=== PATIENT | female | born 1970 | race Hispanic/Latino ===

== ENCOUNTER 2020-11-10 16:04 | Inpatient (IN) | payer OTHER, SELFPAY ==
--- OUTSIDE RECORDS SUMMARY | 2020-11-10 16:07 | XMS REPORT | Continuity of Care Document ---
:1970 Author Organization [facility] t Address [address] [place] [address] Care Team Providers Name Role Phone Yifan Morris DO Primary Care Physician BETO Attending Clinician Unavailable Roney Rodrigues Attending Clinician ELEANOR Attending Clinician Unavailable Mart Webster Attending Clinician Diego Sutton Attending Clinician Natasha Attending Clinician Jory Attending Clinician Diego Sutton Admitting Clinician Payers Payer Name Policy Type Policy Effective Date Expiration Date [facility] Number 90 [id number] 2019 [employer] DEGREE/ENTRUSTE 00:00:00 [facility] NTRUST / 90 DEGREE BENEFITS COVERAGE [id number] 020-PresentPPO Problems Condition Condition Condition Status Onset Resolution Last Treating Co mments Source Name Details Category Date Date Treatment Clinician Date Mixed Mixed Disease Active 2019-03 Methodi incontinen incontinen 04-02 st ce urge ce urge 00:00: Hospita and stress and stress 00 l HOME SLEEP Diagnosis Active 2017-05-24 Memoria STUDY 2- 13:25:00 l G0399 HOME 00:00: [place] SLEEP 00 STUDY G0399 Active 05/20/2017 [facility] M50.90 - Diagnosis Active 2016-032017-02-01 M emoria CERVICAL -08 19:00:00 l DISC M50.90 - 00:01: Fadi n DISORDER, CERVICAL 00 UNSP, DISC DISORDER, UNSP, Active 01/30/2017 KIRK Martinez Interverte Problem Active 2018-11-22 M emoria bral disc 00:50:31 l disorder Adam (disorder) Interverte bral disc disorder (disorder) Active Problem 11/22/2018 [facility] Migraine Problem Active 2018-11-22 Mem oria (disorder) 00:50:31 l Migraine Fadi n (disorder) Active Problem 11/22/2018 [facility] Obstructiv Problem Active 2018-11-22 M emoria e sleep 00:50:31 l apnea Adam syndrome Obstructiv (disorder) e sleep apnea syndrome (disorder) Active Problem 11/22/2018 [facility] Cervical Problem Active 2018-11-22 Mem oria disc 00:50:31 l disorder Cervical Herm ashtyn (disorder) disc disorder (disorder) Active Problem 11/22/2018 [facility] Fibromyalg Problem Active 2018-11-22 M emoria ia 00:50:31 l (disorder) Fadi n Fibromyalg ia (disorder) Active Problem 11/22/2018 [facility] KIRK Martinez History of Past Illness Condition Condition Condition Status Onset Resolution Last Treating Co mments Source Name Details Category Date Date Treatment Clinician Date Obstructiv Problem 2017-08-30 2017-08-30 Memoria e sleep 05-31 12:33:46 12:33:46 l apnea 04:50: Adam (adult) Obstructiv 38 (pediatric e sleep ) apnea (adult) (pediatric ) 05/31/2017 08/30/2017 [facility] Allergies, Adverse Reactions, Alerts Allergy Allergy Status Severity Reaction(s) Onset Inactive Treating Comm ents Source Name Type Date Date Clinician No Known DA Active [facility] 10[facility]30 [facility] [place] No Known DA Active [facility]- [facility] [place] Social History Social Habit Start Date Stop Date Quantity Comments Source Tobacco use and 2020-02-01 2020-02-01 Never used [facility] exposure 00:00:00 00:00:00 Social History 2017-06-03 2017-06-03 [facility] 19:18:42 19:18:42 Sex Ass[birth year] At [birth year] [facility] 00:00:00 00:00:00 Smoking Status Start Date Stop Date Source Social History [facility] Medications Ordered Filled Start Stop Current Ordering Indication Dosage Frequency Signature Comments Components Source Medication Medication Date Date Medication? Clinician (SIG) Name Name Botulinum Yes 200 unit, Mem oria Toxin Type 5-21 Route: IM, l A 21:01: ONCE, [place] 00 Dosing Weight 70.455, kg, Start date: 08/12/18 16:01:00 CDT, Stop date: 08/12/18 16:01:00 CDT Acetaminoph 2017-03 No 1 tab, PO, Memoria en 325 MG / 2-17 BID, PRN l Hydrocodone 20:04: Pain, [facility] Bitartrate 00 pain. CTRL 10 MG Oral [id number] Tablet 78, X 30 [[place] day, # 60 10/325] tab, 0 Refill(s), given to patient gabapentin 2017-03 Yes 600 mg = 2 M emoria 300 MG Oral 2-17 tab, PO, l Tablet 20:02: Bedtime, # Paloma nn [Gralise] 08 60 tab, 2 Refill(s), Pharmacy: [facility] #[id number] gabapentin No 600 mg = 2 M emoria 300 MG Oral 8-29 tab, PO, l Tablet 17:36: Bedtime, X Paloma nn [Gralise] 37 30 day, # 60 tab, 2 Refill(s), Pharmacy: [facility] #[id number] tizanidine Yes See Memoria 2 mg oral 7-09 Instructio l tablet 13:16: ns, PRN as Paloma nn 52 needed for muscle spasm, 1 to 2 tab q12 hours/prn, # 45 tab, 0 Refill(s), Pharmacy: [facility] #[id number] 24 HR Yes See Memoria Cyclobenzap 5-31 Instructio l rine 17:24: ns, 1 cap Adam hydrochlori 00 PO de 15 MG q12h/prn Extended for muscle Release spasms, # Capsule 45 tab, 1 [Amrix] Refill(s), [facility]acy: [facility][id number] tizanidine 2017-0 Yes See Memoria 2 mg oral 5-22 Instructio l tablet 22:37: ns, PRN as Paloma nn 51 needed for muscle spasm, 1 to 2 tab q12 hours/prn, # 45 tab, 2 Refill(s), Pharmacy: [facility] #[id number] gabapentin 2017- Yes 600 mg = 2 M emoria 300 MG Oral 5-22 tab, PO, l Tablet 22:35: Bedtime, # Paloma nn [Gralise] 57 60 tab, 2 Refill(s), Pharmacy: [facility] #[id number] tizanidine 2018-0 Yes 2 mg = 1 Mem oria 2 mg oral 5-07 tab, PO, l tablet 15:21: TID, PRN Adam 15 as needed for muscle spasm, # 90 tab, 0 Refill(s), Pharmacy: [facility] #[id number] onabotulinu Yes See Memori a mtoxinA 200 5-02 Instructio l UNT/ML 19:23: ns, OFFICE Paloma nn Injectable 00 USE ONLY. Solution MD to [Botox] inject 155 units IM to head & neck region q90 days, # 1 vial, 3 Refill(s), Pharmacy: [facility], Dx: G43.709 tizanidine 2017-0 No 2 mg = 1 Mem oria 2 mg oral 4-09 tab, PO, l tablet 18:15: TID, PRN Adam 17 as needed for muscle spasm, X 30 day, # 90 tab, 0 Refill(s), Pharmacy: [facility] #[id number] tizanidine 2017-0 No 2 mg = 1 Mem oria 2 mg oral 3-12 tab, PO, l tablet 21:25: TID, PRN Adam 00 as needed for muscle spasm, X 30 day, # 90 tab, 0 Refill(s), Pharmacy: [facility] #[id number] Fish Oil 2018-0 Yes PO, 0 Memoria 3-12 Refill(s) l 19:43: [place] 00 Trazodone 2018-0 Yes PO, 0 Memoria 3-12 Refill(s) l 19:43: [place] 00 Milk 2018-0 Yes 0 Memoria Thistle 3-12 Refill(s) l 19:43: [place] 00 Vitamin D3 2017-0 Yes 50,000 Memor ia 50,000 intl 2-13 IntlUnit = l units oral 23:00: 1 cap, PO, H ermann capsule 01 qWeek, # 12 cap, 3 Refill(s), Pharmacy: [facility] #[id number] gabapentin 2017- Yes 300 mg = 1 M emoria 300 MG Oral 2-05 tab, PO, l Tablet 19:52: Bedtime, # Paloma nn [Gralise] 00 60 tab, 1 Refill(s), Pharmacy: [facility] #[id number] Vitamin D3 2016- Yes 50,000 Memor ia 50,000 intl 1-08 IntlUnit = l units oral 04:05: 1 cap, PO, H ermann capsule 00 qWeek, # 12 cap, 1 Refill(s), other No known No Methodi medications [facility]osp[facility] l Vital Signs Vital Name Observation Time Observation Value Comments Source Systolic blood 2020-02-01 16:48:00 106 mm[Hg] [facility] pressure Diastolic blood 2020-02-01 16:48:00 75 mm[Hg] [facility] pressure Heart rate 2020-02-01 16:48:00 76 /min [facility] Body height 2020-02-01 16:48:00 157.5 cm [facility] Body weight 2020-02-01 16:48:00 72.576 kg [facility] BMI 2020-02-01 16:48:00 29.26 kg/m2 [facility] BMI Calculated 2018-10-13 19:20:00 Jacindaori al [place] Height 2018-10-13 19:20:00 157.48 cm [facility] [place] Weight 2018-10-13 19:20:00 [facility] [place] Systolic (mm Hg) 2018-10-13 19:20:00 Dave butt [place] Diastolic (mm Hg) 2018-10-13 19:20:00 Mem maulik [place] Heart Rate 2018-10-13 19:20:00 [facility] [place] Height 2018-05-19 20:06:00 157.48 cm [facility] Adam Weight 2018-05-19 20:06:00 [facility] [place] BMI Calculated 2018-05-19 20:06:00 Memori al [place] Systolic (mm Hg) 2018-05-19 20:06:00 Dave rial [place] Diastolic (mm Hg) 2018-05-19 20:06:00 Mem orial [place] Heart Rate 2018-05-19 20:06:00 [facility] [place] BMI Calculated 2018-04-16 20:49:00 Memori al [place] Weight 2018-04-16 20:49:00 [facility] [place] Height 2018-04-16 20:49:00 154.94 cm [facility] [place] Systolic (mm Hg) 2018-04-16 20:49:00 Dave rial [place] Diastolic (mm Hg) 2018-04-16 20:49:00 Mem orial [place] Heart Rate 2018-04-16 20:49:00 [facility] [place] BMI Calculated 2018-02-19 17:01:00 Memori al [place] Height 2018-02-19 17:01:00 154.94 cm [facility] [place] Weight 2018-02-19 17:01:00 [facility] [place] Systolic (mm Hg) 2018-02-19 17:01:00 Dave rial [place] Diastolic (mm Hg) 2018-02-19 17:01:00 Mem orial [place] Heart Rate 2018-02-19 17:01:00 [facility] [place] BMI Calculated 2018-01-30 18:16:00 Memori al [place] Weight 2018-01-30 18:16:00 [facility] [place] Systolic (mm Hg) 2018-01-30 18:16:00 Dave rial [place] Diastolic (mm Hg) 2018-01-30 18:16:00 Mem orial [place] Heart Rate 2018-01-30 18:16:00 [facility] [place] Height 2018-01-30 18:16:00 154.94 cm [facility] [place] BMI Calculated 2018-01-29 18:20:00 Memori al [place] Weight 2018-01-29 18:20:00 [facility] [place] Height 2018-01-29 18:20:00 154.94 cm [facility] [place] Systolic (mm Hg) 2018-01-29 18:20:00 Dave rial [place] Diastolic (mm Hg) 2018-01-29 18:20:00 Mem orial [place] Heart Rate 2018-01-29 18:20:00 [facility] [place] Systolic (mm Hg) 2017-10-24 16:02:00 Dave rial [place] Diastolic (mm Hg) 2017-10-24 16:02:00 Mem orial [place] Heart Rate 2017-10-24 16:02:00 [facility] [place] BMI Calculated 2017-10-24 16:02:00 Memori al [place] Weight 2017-10-24 16:02:00 [facility] [place] Height 2017-10-24 16:02:00 154.94 cm [facility] [place] Heart Rate 2017-10-09 15:58:00 [facility] [place] Systolic (mm Hg) 2017-10-09 15:58:00 Dave rial [place] Diastolic (mm Hg) 2017-10-09 15:58:00 Mem orial [place] BMI Calculated 2017-10-09 15:58:00 Memori al [place] Weight 2017-10-09 15:58:00 [facility] [place] Height 2017-10-09 15:58:00 157.48 cm [facility] [place] BMI Calculated 2017-08-22 16:50:00 Memori al [place] Weight 2017-08-22 16:50:00 [facility] [place] Height 2017-08-22 16:50:00 154.94 cm [facility] [place] Systolic (mm Hg) 2017-08-22 16:50:00 Dave rial [place] Diastolic (mm Hg) 2017-08-22 16:50:00 Mem orial [place] Heart Rate 2017-08-22 16:50:00 [facility] [place] Height 2017-06-03 19:18:00 157.48 cm [facility] [place] BMI Calculated 2017-06-03 19:18:00 Memori al [place] Weight 2017-06-03 19:18:00 [facility] [place] Heart Rate 2017-06-03 19:18:00 [facility] [place] Systolic (mm Hg) 2017-06-03 19:18:00 Dave rial [place] Diastolic (mm Hg) 2017-06-03 19:18:00 Mem orial [place] Weight 2017-06-03 17:27:00 [facility] [place] BMI Calculated 2017-06-03 17:27:00 Memori al [place] Height 2017-06-03 17:27:00 157.48 cm [facility] [place] Systolic (mm Hg) 2017-06-03 17:27:00 Dave rial [place] Diastolic (mm Hg) 2017-06-03 17:27:00 Mem orial [place] Heart Rate 2017-06-03 17:27:00 [facility] [place] BMI Calculated 2017-04-11 23:47:00 Jacindaori al [place] Weight 2017-04-11 23:47:00 [facility] Adam Height 2017-04-11 23:47:00 154.94 cm [facility] [place] Heart Rate 2017-04-11 23:47:00 [facility] [place] Systolic (mm Hg) 2017-04-11 23:47:00 Dave rial [place] Diastolic (mm Hg) 2017-04-11 23:47:00 [facility] orial [place] Procedures Procedure Date / Time Performing Clinician Source Performed URINE CULTURE 2020-02-01 18:04:00 Vivienne Guillermo ospital [id number] 2020-02-01 17:33:00 Vivienne Guillermo [facility]spital POC URINALYSIS DIPSTICK 2020-02-01 17:26:00 Vivienne Guillermo [facility] Injection(s), diagnostic or 2018-10-14 15:09:00 [facility] [place] therapeutic agent, paravertebral facet (zygapophyseal) joint (or nerves innervating that joint) with image guidance (fluoroscopy or CT), lumbar or sacral; second level (List separately in addition to code for primary procedure) Injection(s), diagnostic or 2018-10-14 15:09:00 [facility] [place] therapeutic agent, paravertebral facet (zygapophyseal) joint (or nerves innervating that joint) with image guidance (fluoroscopy or CT), lumbar or sacral; third and any additional level(s) (List separately in addition to code f Injection(s), diagnostic or 2018-10-14 15:09:00 [facility] [place] therapeutic agent, paravertebral facet (zygapophyseal) joint (or nerves innervating that joint) with image guidance (fluoroscopy or CT), lumbar or sacral; single level Injection(s), diagnostic or 2018-05-01 20:34:00 [facility] [place] therapeutic agent, paravertebral facet (zygapophyseal) joint (or nerves innervating that joint) with image guidance (fluoroscopy or CT), cervical or thoracic; third and any additional level(s) (List separately in addition to co Injection(s), diagnostic or 2018-05-01 20:34:00 [facility] [place] therapeutic agent, paravertebral facet (zygapophyseal) joint (or nerves innervating that joint) with image guidance (fluoroscopy or CT), cervical or thoracic; second level (List separately in addition to code for primary proced Injection(s), diagnostic or 2018-05-01 20:34:00 Russel Medina therapeutic agent, paravertebral facet (zygapophyseal) joint (or nerves innervating that joint) with image guidance (fluoroscopy or CT), cervical or thoracic; single level Injection(s); single or 2018-03-10 20:23:00 Dave rial [place] multiple trigger point(s), 3 or more muscles Injection, anesthetic 2018-03-10 20:23:00 Surjit Kunz agent; greater occipital nerve Injection, anesthetic 2018-03-10 20:23:00 Surjit Kunz agent; other peripheral nerve or branch Chemodenervation of 2018-01-29 17:45:00 Russel Medina muscle(s); muscle(s) innervated by facial, trigeminal, cervical spinal and accessory nerves, bilateral (eg, for chronic migraine) Greater auricular nerve 2017-06-13 05:00:00 Dave rial [place] block Greater occipital nerve 2017-06-13 05:00:00 Dave rial [place] block TPI - Trigger point 2017-06-13 05:00:00 Russel Medina injection section Russel jessica Salpingectomy<sup>1</sup> Surjit Kunz Plan of Care Planned Activity Planned Date Details Comments Source Future Scheduled Test COVID-19 VACCINE (1) [facility] [code = COVID-19 VACCINE (1)] Future Scheduled Test Hepatitis C screening [facility] (procedure) [code = 785905974] Future Scheduled Test Screening for malignant [facility] neoplasm of cervix (procedure) [code = 268969851] Future Scheduled Test BREAST CANCER SCREENING [facility] [code = BREAST CANCER SCREENING] Future Scheduled Test COLONOSCOPY SCREENING [facility] [code = COLONOSCOPY SCREENING] Future Scheduled Test SHINGLES VACCINES (#1) [facility] [code = SHINGLES VACCINES (#1)] Future Scheduled Test INFLUENZA VACCINE [code [facility] = INFLUENZA VACCINE] Encounters Start End Encounter Admission Attending Care Care Encounter Source Date/Time Date/Time Type Type Clinicians Facility Department ID 2020-02-29 2020-02-29 Travel 1.2.840.1 .[id number] Methodi 00:00:00 00:00:[address] 3.430.2.7 0.2.7.3.698 Ho spita .3.329465 084.8 l .8 2020-02-29 2020-02-29 Outpatient BETO, [facility] [id number] [place] 00:00:00 00:00:00 MARY 92[address] [facility] 2020-02-01 2020-02-01 Office [place], 1.2.840.1 [id number] Methodi 10:25:33 10:40:33 Visit Vivienne Sim 56618.1.[address] 3.430.2.7 Hospit a .3.831472 l .8 2020-02-01 2020-02-01 Outpatient [facility] [id number] [place] 00:00:00 00:00:[address] 2020-02-01 2020-02-01 Travel 1.2.840.1 1.2.397.346 [id number] Methodi 00:00:00 00:00:[address] 3.430.2.7 0.2.7.3.698 Ho spita .3.626431 084.8 l .8 2020-01-04 2020-01-04 Travel 1.2.840.1 1.2.113.714 [id number] Methodi 00:00:00 00:00:[address] 3.430.2.7 0.2.7.3.698 Ho spita .3.819094 084.8 l .8 2019-10-05 2019-10-05 Outpatient ELEANOR [facility] [id number] [place] 00:00:00 00:00:00 NIYAH [address] 2018-11-18 2018-11-20 Phone nullFlavo [facility]NA Sp[facility] [id number] Memoria 15:37:48 04:59:59 [facility] 21 l [place] 2018-11-18 2018-11-19 Outpatient MHMISCHER MHMISCHER [id number] 10:37:48 23:59:59 21 2018-11-18 2018-11-18 Ambulatory nullFlavo [facility] [id number] Memoria 19:20:00 19:20:00 Pre-Reg r Clinic [facility] 34 [facility] 2018-11-18 2018-11-18 Outpatient MHIE MHIE [id number] Memoria 14:20:00 14:20:00 34 [facility] 2018-11-18 2018-11-18 Outpatient SHANTELLE WebsterMISCHER MISCHER [id number] 14:20:00 14:20:00 [facility]iy[facility] 2018-11-12 2018-11-14 Phone nullFlavo [facility]NA Sp[facility] [id number] Memoria 15:41:33 04:59:59 Message r Clinic [facility] 20 [facility] 2018-11-12 2018-11-13 Outpatient MHMISCHER MISCHER [id number] 10:41:33 23:59:59 20 2018-10-28 2018-10-29 Outpatient nullFlavo [facility] [id number] Memoria 16:20:00 04:59:59 r Clinic [facility] 33 [facility] 2018-10-28 2018-10-28 Outpatient Eleanor MHMISCHER MISCHER [id number] 11:20:00 23:59:59 Niyah 33 [place] 2018-10-28 2018-10-28 Outpatient MHIE MHIE [id number] Memoria 11:20:00 11:20:00 33 [facility] 2018-10-14 2018-10-15 Outpatient nullFlavo [facility] Sp[facility] [id number] Memoria 13:00:00 04:59:59 r Clinic [facility] 32 [facility] 2018-10-14 2018-10-14 Outpatient Eleanor MHMISCHER MHMISCHER [id number] 08:00:00 23:59:59 Niyah 32 [place] 2018-10-14 2018-10-14 Outpatient MHIE MHIE [id number] Memoria 08:00:00 08:00:00 32 [facility] 2018-10-13 2018-10-14 Outpatient nullFlavo MNA Spine [id number] Memoria 18:20:00 04:59:59 r Clinic [facility] 31 [facility] 2018-10-13 2018-10-13 Outpatient Eleanor, MHMISCHER MHMISCHER 61 [id number] 13:20:00 23:59:59 Niyah Cevallos 2018-10-13 2018-10-13 Outpatient MHIE MHIE [id number] Memoria 13:20:00 13:20:00 31 [facility] 2018-08-21 2018-08-23 Phone nullFlavo MNA [id number] Memoria 15:54:38 04:59:59 Message r Neurosurger 19 l y [facility] 2018-08-21 2018-08-22 Outpatient MHMISCHER MHMISCHER [id number] 10:54:38 23:59:59 19 2018-08-12 2018-08-13 Outpatient nullFlavo [facility] Spine [id number] Memoria 18:20:00 04:59:59 r Clinic [facility] 30 [facility] 2018-08-12 2018-08-12 Outpatient Eleanor, MHMISCHER MHMISCHER [id number] 13:20:00 23:59:59 Niyah Cevallos 2018-08-12 2018-08-12 Outpatient MHIE MHIE [id number] Memoria 13:20:00 13:20:00 30 [facility] 2018-07-22 2018-07-24 Phone nullFlavo MNA Spine [id number] Memoria 17:22:48 04:59:59 Message r Clinic [facility] 18 [facility] 2018-07-22 2018-07-23 Outpatient MHMISCHER MHMISCHER [id number] 12:22:48 23:59:59 18 2018-07-16 2018-07-18 Phone nullFlavo MNA [id number] Memoria 13:19:00 04:59:59 Message r Neurosurger 17 l y [facility] 2018-07-16 2018-07-17 Outpatient MHMISCHER MHMISCHER [id number] 08:19:00 23:59:59 17 2018-07-16 2018-07-17 Outpatient MHMISCHER MHMISCHER [id number] 08:19:00 23:59:59 17 2018-07-14 2018-07-14 Ambulatory nullFlavo [facility]NA Spine [id number] Memoria 16:40:00 16:40:00 Pre-Reg r Clinic [facility] 28 [facility] 2018-07-14 2018-07-14 Outpatient MHIE MHIE [id number] Memoria 11:40:00 11:40:00 28 [facility] 2018-07-14 2018-07-14 Outpatient Eleanor MHMISCHER MHMISCHER [id number] 11:40:00 11:40:00 Niyah 28 [place] 2018-07-09 2018-07-09 Ambulatory nullFlavo [facility]NA Spine [id number] Memoria 16:00:00 16:00:00 Pre-Reg r Clinic TM 29 [facility] 2018-07-09 2018-07-09 Outpatient MHIE MHIE [id number] Memoria 11:00:00 11:00:00 29 [facility] 2018-07-09 2018-07-09 Outpatient Eleanor MISCHER MHMISCHER [id number] 11:00:00 11:00:00 Niyah 29 [place] 2018-06-30 2018-06-30 Ambulatory nullFlavo [facility]NA Spine [id number] Memoria 16:20:00 16:20:00 Pre-Reg r Clinic TM 26 [facility] 2018-06-30 2018-06-30 Outpatient MHIE MHIE [id number] Memoria 11:20:00 11:20:00 26 [facility] 2018-06-30 2018-06-30 Outpatient Eleanor MISCHER MHMISCHER [id number] 11:20:00 11:20:00 Niyah 26 Sarin[place]elhia 2018-06-26 2018-06-27 Outpatient nullFlavo [facility]NA Spine [id number] Memoria 16:20:00 04:59:59 r Clinic TM 27 Adam 2018-06-26 2018-06-26 Outpatient SHANTELLE WebsterMISCHER MHMISCHER [id number] 11:20:00 23:59:59 Niyah 27 Sarinigelhai 2018-06-26 2018-06-26 Outpatient MHIE MHIE [id number] Memoria 11:20:00 11:20:00 27 venice Medina 2018-06-24 2018-06-26 Phone nullFlavo MNA [id number] Memoria 20:21:00 04:59:59 Message r Neurosurger 16 l y [facility] 2018-06-24 2018-06-25 Outpatient MHMISCHER MHMISCHER [id number] 15:21:00 23:59:59 16 2018-06-12 2018-06-12 Ambulatory nullFlavo [facility] Sp[facility] [id number] Memoria 16:20:00 16:20:00 Pre-Reg r Clinic [facility] 25 [facility] 2018-06-12 2018-06-12 Outpatient MHIE MHIE [id number] Memoria 11:20:00 11:20:00 25 [facility] 2018-06-12 2018-06-12 Outpatient Eleanor, MHMISCHER MHMISCHER [id number] 11:20:00 11:20:00 Niyah 25 [place] 2018-05-19 2018-05-20 Outpatient nullFlavo [facility] Sp[facility] [id number] Memoria 20:00:00 05:59:59 r Clinic [facility] 24 [facility] 2018-05-19 2018-05-19 Outpatient Eleanor MHMISCHER MHMISCHER [id number] 14:00:00 23:59:59 Niyah [facility] 2018-05-19 2018-05-19 Outpatient MHIE MHIE [id number] Memoria 14:00:00 14:00:00 24 [facility] 2018-05-12 2018-05-12 Ambulatory nullFlavo MNA Spine [id number] Memoria 17:00:00 17:00:00 Pre-Reg r Clinic [facility] 23 [facility] 2018-05-12 2018-05-12 Outpatient MHIE MHIE [id number] Memoria 11:00:00 11:00:00 23 [facility] 2018-05-12 2018-05-12 Outpatient Eleanor, MHMISCHER MHMISCHER [id number] 11:00:00 11:00:00 Niyah 23 [place] 2018-05-01 2018-05-02 Outpatient nullFlavo [facility]NA Spine [id number] Memoria 17:00:00 05:59:59 r Clinic TM 22 [facility] 2018-05-01 2018-05-01 Outpatient Eleanor, MHMISCHER MHMISCHER [id number] 11:00:00 23:59:59 Niyah Cevallos 2018-05-01 2018-05-01 Outpatient Eleanor, MHMISCHER MHMISCHER [id number] 11:00:00 23:59:59 Niyah Cevallos 2018-05-01 2018-05-01 Outpatient MHIE MHIE [id number] Memoria 11:00:00 11:00:00 22 venice [place] 2018-04-23 2018-04-23 Ambulatory nullFlavo MNA [id number] Memoria 17:45:00 17:45:00 Pre-Reg r Neuroscienc 19 l e [facility] 2018-04-23 2018-04-23 Outpatient MHIE MHIE [id number] Memoria 11:45:00 11:45:00 19 venice [place] 2018-04-23 2018-04-23 Outpatient Sutton, MHMISCHER MHMISCHER [id number] 11:45:00 11:45:00 Tyshawn 19 [facility] 2018-04-23 2018-04-23 Outpatient Sutton, MHMISCHER MHMISCHER [id number] 11:45:00 11:45:00 Tyshawn Kristin Diego 2018-04-16 2018-04-17 Outpatient nullFlavo [facility] [id number] Memoria 20:00:00 05:59:59 r Clinic [facility] 21 [facility] 2018-04-16 2018-04-16 Outpatient Eleanor, MHMISCHER MHMISCHER [id number] 14:00:00 23:59:59 Niyah Cevallos 2018-04-16 2018-04-16 Outpatient Eleanor, MHMISCHER MHMISCHER [id number] 14:00:00 23:59:59 Niyah 21 [place] 2018-04-16 2018-04-16 Outpatient MHIE MHIE [id number] Memoria 14:00:00 14:00:00 21 venice [place] 2018-04-04 2018-04-06 Phone nullFlavo MNA Spine [id number] Memoria 18:49:00 05:59:59 Message r Clinic [facility] 15 l [place] 2018-04-04 2018-04-05 Outpatient MHMISCHER MHMISCHER [id number] 12:49:00 23:59:59 15 2018-03-12 2018-03-14 Phone nullFlavo MNA Spine [id number] Memoria 16:12:00 05:59:59 Message r Clinic [facility] 14 l [place] 2018-03-12 2018-03-13 Outpatient MHMISCHER MHMISCHER [id number] 10:12:00 23:59:59 14 2018-03-10 2018-03-11 Outpatient nullFlavo MNA [id number] Memoria 19:00:00 05:59:59 r Neuroscienc 20 l e [facility] 2018-03-10 2018-03-10 Outpatient Herman MHMISCHER MHMISCHER [id number] 13:00:00 23:59:59 Tyshawn 20 [place] 2018-03-10 2018-03-10 Outpatient MHIE MHIE [id number] Memoria 13:00:00 13:00:00 20 l [place] 2018-02-19 2018-02-20 Outpatient nullFlavo MNA [id number] Memoria 17:00:00 05:59:59 r Neuroscienc 18 l e [facility] 2018-02-19 2018-02-19 Outpatient Herman, MHMISCHER MHMISCHER [id number] 11:00:00 23:59:59 Tyshawn 18 [place] 2018-02-19 2018-02-19 Outpatient MHIE MHIE [id number] Memoria 11:00:00 11:00:00 18 l [place] 2018-01-29 2018-01-30 Outpatient nullFlavo MNA [id number] Memoria 17:45:00 05:59:59 r Neuroscienc 16 l e [facility] 2018-01-29 2018-01-29 Outpatient Herman MHMISCHER MHMISCHER [id number] 11:45:00 23:59:59 Tyshawn 16 [place] 2018-01-29 2018-01-29 Outpatient MHIE MHIE [id number] Memoria 11:45:00 11:45:00 16 l [place] 2017-12-25 2017-12-25 Ambulatory nullFlavo MNA [id number] Memoria 16:30:00 16:30:00 Pre-Reg r Neuroscienc 17 l e [facility] 2017-12-25 2017-12-25 Outpatient MHIE MHIE [id number] Memoria 11:30:00 11:30:00 17 venice [place] 2017-12-25 2017-12-25 Outpatient Natasha, MHMISCHER MHMISCHER [id number] 11:30:00 11:30:00 [place] 17 2017-12-04 2017-12-04 Ambulatory nullFlavo MNA [id number] Memoria 16:00:00 16:00:00 Pre-Reg r Neuroscienc 15 l e [facility] 2017-12-04 2017-12-04 Outpatient MHIE MHIE [id number] Memoria 11:00:00 11:00:00 15 venice [place] 2017-12-04 2017-12-04 Outpatient Natasha, MHMISCHER MHMISCHER [id number] 11:00:00 11:00:00 [place] 15 2017-12-03 2017-12-04 Outpatient nullFlavo MNA [id number] Memoria 16:40:00 04:59:59 r Neuroscienc 14 l e [facility] 2017-12-03 2017-12-03 Outpatient Sutton, MHMISCHER MHMISCHER [id number] 11:40:00 23:59:59 Tyshawn Galindo [place] 2017-12-03 2017-12-03 Outpatient Sutton, MHMISCHER MHMISCHER [id number] 11:40:00 23:59:59 Tyshawn Galindo [place] 2017-12-03 2017-12-03 Outpatient MHIE MHIE [id number] Memoria 11:40:00 11:40:00 14 venice [place] 2017-10-24 2017-10-25 Outpatient nullFlavo MNA [id number] Memoria 16:15:00 04:59:59 r Neuroscienc 12 l e [facility] 2017-10-24 2017-10-24 Outpatient Sutton, MHMISCHER MHMISCHER [id number] 11:15:00 23:59:59 Tyshawn [place] 2017-10-24 2017-10-24 Outpatient MHIE MHIE [id number] Memoria 11:15:00 11:15:00 12 venice [place] 2017-10-09 2017-10-10 Outpatient nullFlavo MNA [id number] Memoria 16:40:00 04:59:59 r Neuroscienc 13 l e [facility] 2017-10-09 2017-10-09 [id number] 11:40:00 23:59:59 Tyshawn 13 [place] 2017-10-09 2017-10-09 Outpatient [facility] [id number] 11:40:00 23:59:59 Tyshawn Talib [place] 2017-10-09 2017-10-09 Outpatient MHIE MHIE [id number] Memoria 11:40:00 11:40:00 13 l [place] 2017-09-12 2017-09-13 Outpatient nullFlavo MNA [id number] Memoria 15:40:00 04:59:59 r Neurology 10 l [facility] 2017-09-12 2017-09-12 [facility] [id number] 10:40:00 23:59:59 a, Jennie 10 2017-09-12 2017-09-12 Outpatient MHIE MHIE [id number] Memoria 10:40:00 10:40:00 10 l [place] 2017-08-22 2017-08-23 Outpatient nullFlavo MNA [id number] Memoria 16:30:00 04:59:59 r Neuroscienc 11 l e [facility] 2017-08-22 2017-08-22 Outpatient Herman[facility] [id number] 11:30:00 23:59:59 Tyshawn 11 [facility] 2017-08-22 2017-08-22 Outpatient MHIE MHIE [id number] Memoria 11:30:00 11:30:00 11 l [place] 2017-08-13 2017-08-15 Phone nullFlavo MNA [id number] Memoria 17:05:00 04:59:59 Message r Neuroscienc 13 l e [facility] 2017-08-13 2017-08-14 Outpatient MHMISCHER MISCHER [id number] 12:05:00 23:59:59 13 2017-08-09 2017-08-11 Phone nullFlavo MNA [id number] Memoria 20:51:00 04:59:59 Message r Neuroscienc 12 l e [facility] 2017-08-09 2017-08-10 Outpatient MHMISCHER MHMISCHER [id number] 15:51:00 23:59:59 12 2017-08-01 2017-08-02 Outpatient nullFlavo MNA [id number] Memoria 19:00:00 04:59:59 r Neuroscienc 08 l e [facility] 2017-07-31 2017-08-02 Phone nullFlavo MNA [id number] Memoria 14:47:00 04:59:59 Message r Neuroscienc 10 l e [facility] 2017-08-01 2017-08-01 Outpatient Sutton, MHMISCHER MHMISCHER [id number] 14:00:00 23:59:59 Tyshawn 08 [facility] 2017-08-01 2017-08-01 Outpatient Sutton, MHMISCHER MHMISCHER [id number] 14:00:00 23:59:59 Tyshawn Allyn [facility] 2017-07-31 2017-08-01 Outpatient MHMISCHER MHMISCHER [id number] 09:47:00 23:59:59 10 2017-07-31 2017-08-01 Outpatient MHMISCHER MHMISCHER [id number] 09:47:00 23:59:59 10 2017-08-01 2017-08-01 Outpatient MHIE MHIE [id number] Memoria 14:00:00 14:00:00 08 l [place] 2017-07-29 2017-07-31 Phone nullFlavo MNA [id number] Memoria 13:18:00 04:59:59 Message r Neuroscienc 09 l e [facility] 2017-07-29 2017-07-30 Outpatient MHMISCHER MHMISCHER [id number] 08:18:00 23:59:59 09 2017-07-29 2017-07-29 Ambulatory nullFlavo MNA [id number] Memoria 18:40:00 18:40:00 Pre-Reg r Neurology 09 l [facility] 2017-07-29 2017-07-29 Outpatient MHIE MHIE [id number] Memoria 13:40:00 13:40:00 09 l [place] 2017-07-29 2017-07-29 Outpatient Chirumamill MHMISCHER MHMISCHER [id number] 13:40:00 13:40:00 a, Jennie 2017-06-13 2017-06-14 Outpatient nullFlavo MNA [id number] Memoria 16:20:00 04:59:59 r Neuroscienc 07 l e [facility] 2017-06-13 2017-06-13 Outpatient HermanNEFTALYSCHCHAU [facility] [id number] 11:20:00 23:59:59 [place] 2017-06-13 2017-06-13 Outpatient MHIE MHIE [id number] Memoria 11:20:00 11:20:00 07 venice [place] 2017-06-10 2017-06-12 Phone nullFlavo MNA [id number] Memoria 17:43:00 04:59:59 Message r Neuroscienc 08 l e [facility] 2017-06-10 2017-06-11 Outpatient MHMISCHER MISCHER [id number] 12:43:00 23:59:59 08 2017-06-03 2017-06-04 Outpatient nullFlavo MNA [id number] Memoria 20:30:00 04:59:59 r Neuroscienc 04 l e [facility] 2017-06-03 2017-06-04 Outpatient nullFlavo MNA [id number] Memoria 19:00:00 04:59:59 r Neurology 06 l [facility] 2017-06-03 2017-06-03 Outpatient Herman[facility]FTALYSCHER [facility] [id number] 15:30:00 23:59:59 [place]wn [place] 2017-06-03 2017-06-03 Outpatient Bianca [facility] [id number] 14:00:00 23:59:59 aAileenya 2017-06-03 2017-06-03 Outpatient MHIE MHIE [id number] Memoria 15:30:00 15:30:00 04 venice [place] 2017-06-03 2017-06-03 Outpatient MHIE MHIE [id number] Memoria 14:00:00 14:00:00 06 venice [place] 2017-05-24 2017-05-25 Outpatient nullFlavo [facility] [id number] Memoria 19:16:00 05:59:00 r Adam 02 l [facility] 2017-05-24 2017-05-24 Outpatient Herman, MHSE MHSE [id number] 13:16:00 23:59:00 [place] 2017-05-16 2017-05-18 Phone nullFlavo MNA [id number] Memoria 19:42:00 05:59:59 Message r Neuroscienc 07 l e [facility] 2017-05-16 2017-05-18 Phone nullFlavo MNA [id number] Memoria 19:38:00 05:59:59 Message r Neuroscienc 06 l e [facility] 2017-05-16 2017-05-17 Outpatient MHMISCHER MHMISCHER [id number] 13:42:00 23:59:59 07 2017-05-16 2017-05-17 Outpatient MHMISCHER MHMISCHER [id number] 13:38:00 23:59:59 06 2017-05-07 2017-05-07 Ambulatory nullFlavo MNA [id number] Memoria 17:20:00 17:20:00 Pre-Reg r Neurology 05 l [facility] 2017-05-07 2017-05-07 Outpatient MHIE MHIE [id number] Memoria 11:20:00 11:20:00 05 l [place] 2017-05-07 2017-05-07 Outpatient Chirumamill MHMISCHER MHMISCHER [id number] 11:20:00 11:20:00 Jennie carlson 05 2017-04-29 2017-05-01 Phone nullFlavo MNA [id number] Memoria 19:52:00 05:59:59 Message r Neuroscienc 05 l e [facility] 2017-04-29 2017-05-01 Phone nullFlavo MNA [id number] Memoria 14:05:00 05:59:59 Message r Neuroscienc 04 l e [facility] 2017-04-29 2017-04-30 Outpatient MHMISCHER MHMISCHER [id number] 13:52:00 23:59:59 05 2017-04-29 2017-04-30 Outpatient MHMISCHER MHMISCHER [id number] 08:05:00 23:59:59 04 2017-04-11 2017-04-12 Ambulatory nullFlavo MNA [id number] Memoria 17:45:00 05:59:59 Pre-Reg r Neurology 02 l [facility] [id number] 2017-04-11 2017-04-12 Ambulatory nullFlavo MNA [id number] Memoria 17:45:00 05:59:59 Pre-Reg r Neuroscienc 03 l e [facility] 2017-04-11 2017-04-11 Outpatient Herman, MHMISCHER MHMISCHER [id number] 11:45:00 23:59:59 Tyshawn 02 [place] 2017-04-11 2017-04-11 Outpatient Herman, MHMISCHER MHMISCHER [id number] 11:45:00 23:59:59 Tyshawn 02 [facility] 2017-04-11 2017-04-11 Outpatient Herman MHMISCHER MHMISCHER [id number] 11:45:00 23:59:59 Tyshawn 03 [facility] 2017-04-11 2017-04-11 Outpatient MHIE MHIE [id number] Memoria 11:45:00 11:45:00 02 ven[place] 2017-04-11 2017-04-11 Outpatient MHIE MHIE [id number] Memoria 11:45:00 11:45:00 03 venice [place] 2017-03-12 2017-03-13 Outpt Diag nullFlavo [facility] [id number] Memoria 20:26:00 05:59:00 Services r Outpatient 01 l Imaging [facility] 2017-03-12 2017-03-12 Outpatient Herman, MHOIP MHOIP [id number] 14:26:00 23:59:00 Tyshawn 01 [place] 2017-02-18 2017-02-20 Phone nullFlavo MNA [id number] Memoria 18:42:00 05:59:59 Message r Neuroscienc 02 l e [facility] 2017-02-18 2017-02-20 Phone nullFlavo MNA [id number] Memoria 18:38:00 05:59:59 Message r Neuroscienc 01 l e [facility] 2017-02-18 2017-02-19 Outpatient MHMISCHER MHMISCHER [id number] 12:42:00 23:59:59 2017-02-18 2017-02-19 Outpatient MHMISCHER MHMISCHER [id number] 12:38:00 23:59:59 2017-02-02 2017-02-02 Outpt Diag nullFlavo [facility] [id number] Memoria 00:22:00 05:59:00 Services r Outpatient 00 l Imaging Adam Martinez 2017-02-01 2017-02-01 Outpatient ROXI SuttonP MHOIP [id number] 18:22:00 23:59:00 Tyshawn 00 [place] 2017-01-31 2017-01-31 Outpatient STACI ODALIS [id number] Memoria 13:00:00 13:00:00 01 l [place] 2017-01-24 2017-01-24 Outpatient ODALIS ODALIS [id number] Memoria 12:00:00 12:00:00 00 venice Adam Results Test Description Test Time Test Comments Results Result Comments Source Urine culture 2020-02-03 14:06:00 Test Item Value Reference Range Interpretation Comme nts Urine culture (test code = 630-4) No growth ZHAO (test code = ZHAO) [facility] BLADDER SCAN/[id number] 17:33:00 Test Item Value Reference Range Interpretation Comments PVR volume (test code = 5766) [facility] urinalysis [id number] 17:26:00 Test Item Value Reference Range Interpretation Comments Color urine, POC (test Yellow code = 9374528) Clarity urine, POC (test Clear code = 0205443) Glucose urine, POC (test Negative Negative code = 8894942) Bilirubin urine, POC Negative Negative (test code = 7009103) Ketones urine, POC (test Trace Negative A code = 3427000) Specific gravity urine, 1.005-1.030 POC (test code = 9313616) Blood urine, POC (test Negative Negative code = 3429623) pH urine, POC (test code See_Comment [A utomated message] = 2046430) The system [employer] generated this result transmitted ref erence range: 5.0, 5.5 , 6.0, 6.5, 7.0, 7.5, 8.0, 8.5. The refere nce range was not u sed to interpret this result as normal/abnor mal. Protein urine, POC (test Negative Negative code = 9690200) Urobilinogen urine, POC <2.0 <2.0 (test code = 4428642) Nitrite urine, POC (test Negative Negative code = 3707980) Leukocyte esterase Trace Negative A urine, POC (test code = 9774325) Lab Interpretation (test Abnormal code = 59186-8) [facility],[id number] 18:16:00 RUN DATE: 11/06/18 [facility] PAGE 1 RUN TIME: 805 Specimen Inquiry RUN USER: INTERFACE PATIENT: TIFFANIE JARRETT LOC: U #: [id number] AGE/SX: 48/F ROOM: [facility] RE11/03/18[facility] DR: Madalyn Gonzalez MD : 70 BED: A DIS: 11/04/18 STATUS: DIS Nicole TLOC: SPEC #: [id number] RECD: 11/03/18 STATUS: ZAHEER PHILLIPS #: [id number] CHERY: 11/03/18- SUBM DR: Madalyn Gonzalez MD ENTERED: 11/04/18-0732 SP TYPE: PERITBX OTHR DR: ORDERED: GROSS ONLY, LEVEL IV/4 CODES: SD7700 - PERITONEUM, NOS PROCEDURES: GROSS ONLY (Incomplete) LEVEL IV (Incomplete) TISSUES: PERITONEUM, NOS - PERITONEUM X 5 CLINICAL HISTORY 48 year old, menorrhagia with regular cycle, pelvis pressure in female (wpd) FINAL DIAGNOSIS Specimen #1 left uterosacral ligament, biopsy: - focus consistent with endosalpingiosis - fibrosis and congestion Specimen #2 right uterosacral ligament, biopsy: - fibrosis and congestion Specimen #3 right pelvic sidewall, biopsy: - fibrosis and congestion Specimen #4 uterus, hysterectomy: - cervix - Nabothian cysts, multiple - endometrium - proliferative pattern - myometrium - extensive adenomyosis - leiomyoma - serosa - fibrous adhesions and foci of endometriosis - fallopian tubes, bilateral resection - no pathologic diagnosis Specimen #5 intrauterine device, removal: - for grossidentification only CPT code(s): 06077 x3, 88525, 36648 cds/wpd 11/05/18 CONTINUED ON NEXT PAGE RUN DATE: 11/06/18 [facility] PAGE 2 RUN TIME: 08 Specimen Inquiry RUN USER: INTERFACE LAMIN Carty #: [id number] PATIENT: GILMARSRITIFFANIE #[id number] (Continued) GROSS DESCRIPTION ANATOMIC SOURCE OF TISSUE (per Requisition): 1. Left uterosacral ligament 2. Right uterosacral ligament 3. Right pelvic sidewall 4. Cervix, uterus, bilateral tubes 5. Intrauterine device (ID only) Each specimen is labeled with the patient's name and medical record number. Specimen #1 is designated "left uterosacral ligament" and consists of a 1.0 x 0.7 x 0.2 cm mcintyre-yellow, cauterized, fibrofatty, soft tissue, entirely submitted as A1. Specimen #2 is designated "right uterosacral ligament" and consists of a 1.2 x 0.7 x 0.2 cm mcintyre-pink, cauterized, fibrofatty, firm tissue, entirely submitted as B1. Specimen #3 is designated "right pelvic sidewall" and consists of a 0.7 x 0.6 x 0.2 cm mcintyre- pink, cauterized, soft tissue, entirely submitted as C1. Specimen #4is designated "cervix, uterus, bilateral tubes" and consists of a 295 gm, 12.5 x 9.5 x 7.0 cm intact uterus with an attached cervix and detached fimbriated fallopian tubes (4.5 and 5.5 cm in length). The uterine serosa is mcintyre-pink and smooth with a few adhesions. The 4 cm ectocervix displays a central 1 cm slit-like os. The endometrium is mcintyre-red, hemorrhagic and slightly nodular witha thickness measuring up to 0.2 cm. The myometrium is extensively trabeculated with a wall thickness measuring up to 4.5 cm. There are multiple hemorrhagic myometrial cysts and a 5.0 cm well-circumscribed nodule. The cut surfaces of the nodule are mcintyre and whorled. There are no areas of hemorrhage or necrosis. The fallopian tubes are pink-purple and hyperemic with pinpoint lumens. Section code: D1 - cervix, D2 - anterior endomyometrium, D3 - posterior endomyometrium, D4 - serosal adhesions and myometrial cysts, D5 - sales representative publications section of large nodule and short segment of fallopian tube, D6 - additional sales representative publications section of large nodule and long segment of fall opian tube. Specimen #5 is designated "intrauterine device" and consists of a 3.5 x 3.5 x 0.4 cm white plastic T-shaped device which is consistent with an intrauterine device. No sections are submitted. Gross diagnosis only. nirmala/riddhi 11/04/18 @ 0929 Signed Cam Laughlin 11/05/18 1816 END OF REPORT HGB [id number] 05:59:00 Test Item Value Reference Range Interpretation Comments HEMOGLOBIN (test code = HGB) 11.2 g/dL 10.7-13.9 N HEMATOCRIT (test code = HCT) 35.1 % 32.1-42.1 N AB HEPATITIS C [id number] 15:27:00 Test Item Value Reference Range Interpretation Comments AB HEPATITIS C (test code = NONREACTIVE NONREACTIVE HCVAB) SIGNAL TO CUTOFF (test code = 0.08 <0.80 N CUTOFF) IS CONSENT FORM SIGNED FOR HIV TESTING? YAB HIV 1 15:27:00 Test Item Value Reference Range Interpretation Comments AB HIV 1 2 (test NONREACTIVE NONREACTIVE Done by Vivienne Cervantesr code = AXV48AG) 4th Gen HIV Ag/Ab Combo Screen IS CONSENT FORM SIGNED FOR HIV TESTING? YAG HEPATITIS B [id number] 15:27:00 Test Item Value Reference Range Interpretation Comments AG HEPATITIS B SURFACE (test code NONREACTIVE NONREACTIVE = HBSAG) IS CONSENT FORM SIGNED FOR HIV TESTING? YHCG SERUM [id number] 14:57:00 Test Item Value Reference Range Interpretation Comments HCG SERUM QUAL (test code = HCGQL) NEGATIVE URINALYSIS [id number] 14:28:00 Test Item Value Reference Range Interpretation Comments UA COLOR (test code = YELLOW YELLOW COLU) UA APPEARANCE (test code CLOUDY CLEAR A = APPU) UA GLUCOSE DIPSTICK (test NEGATIVE NEG code = DGLUU) UA BILIRUBIN DIPSTICK NEGATIVE NEG (test code = BILU) UA KETONE DIPSTICK (test NEGATIVE NEG code = KETU) UA SPECIFIC GRAVITY (test 1.027 1.001-1.035 N code = SGU) UA BLOOD DIPSTICK (test 3+ NEG A code = KEEGAN) UA PH DIPSTICK (test code 5.0 5-9 = JERICA) UA PROTEIN DIPSTICK (test 2+ NEG A code = PROU) UA UROBILINIOGEN DIPSTICK NEGATIVE mg/dL NEG (test code = URO) UA NITRITE DIPSTICK (test NEG NEG code = TIM) UA LEUKOCYTE ESTERASE TRACE NEG A DIPSTICK (test code = LEUU) UA WBC (test code = WBCU) 16-20 #/hpf NONE SEEN A UA RBC (test code = RBCU) 6-10 #/hpf NONE SEEN A UA EPITHELIAL CELLS (test TOO NUMEROUS TO CNT RARE-FEW A code = EPIU) #/HPF UA BACTERIA (test code = RARE /HPF RARE-FEW BACU) UA MUCUS (test code = 2+ NONE SEEN MUCU) URINE SAMPLE: CLEAN CATCHCBC W/AUTO [id number] 14:22:00 Test Item Value Reference Range Interpretation Comments WHITE BLOOD CELL (test code = WBC) 6.1 K/mm3 6.6-12.1 L RED BLOOD CELL (test code = RBC) 4.23 M/mm3 3.45-5.01 N HEMOGLOBIN (test code = HGB) 12.2 g/dL 10.7-13.9 N HEMATOCRIT (test code = HCT) 38.6 % 32.1-42.1 N MEAN CELL VOLUME (test code = MCV) 91 fL 84.1-94.8 N MEAN CELL HGB (test code = MCH) 28.8 pg 27-35 N MEAN CELL HGB CONCETRATION (test 31.6 gm/dL 32.2-34.1 L code = MCHC) RED CELL DISTRIBUTION WIDTH (test 13.8 % 12.4-16.5 N code = RDW) PLATELET COUNT (test code = PLT) 217 K/mm3 133-385 N IMMATURE PLATELET FRACTION (test 0.0 % 0.0-10.8 N code = IPF) MEAN PLATELET VOLUME (test code = 11.9 fl 9.1-12.7 N MPV) NEUTROPHIL % (test code = NT%) 44.0 % 56.5-79.4 L LYMPHOCYTE % (test code = LY%) 43.5 % 14.3-34.3 H MONOCYTE % (test code = MO%) 9.9 % 5.1-10.4 N EOSINOPHIL % (test code = EO%) 1.1 % 0.1-3.0 N BASOPHIL % (test code = BA%) 1.0 % 0.1-1.0 N NEUTROPHIL # (test code = NT#) 2.7 K/mm3 LYMPHOCYTE # (test code = LY#) 2.7 K/mm3 MONOCYTE # (test code = MO#) 0.6 K/mm3 EOSINOPHIL # (test code = EO#) 0.07 K/mm3 BASOPHIL # (test code = BA#) 0.1 K/mm3 RBC MORPHOLOGY REQUIRED (test code NORMAL NORMAL = RBCM) PLATELET MORPHOLOGY REQUIRED (test NORMAL NORMAL code = PLTMR)
--- NOTE | 2020-11-10 17:44 | RAD REPORT ---
EXAM DESCRIPTION: RAD - Chest Pa And Lat (2 Views) - 11/10/2020 5:31 pm CLINICAL HISTORY: SOB Chest pain. COMPARISON: <Comparisons> FINDINGS: Moderate bibasilar lung opacities are present most compatible with infection/ pneumonia. T he heart is normal in size. No displaced fractures.
[2020-11-10] MEDS ORDERED: ONDANSETRON 4 MG/2 ML VIAL ONE (18:11)
[2020-11-10 18:12] LABS: Urine Blood Trace-intact (Negative); Urine Glucose Negative (Negative); Urine Protein 1+ (Negative)
[2020-11-10] MEDS ORDERED: NA CHLORIDE 0.9% 1,000 ML ONE (18:25)
[2020-11-10 18:26] LABS: Absolute Lymphocytes (CBC) 0.9 K/uL (0.7-4.9); Basophils % 0.4 % (0-1.3); Lymphocytes % 18.8 % (15.3-44.8); MPV 7.5 fL (7.6-11.3); RBC Red Blood Cell Count 4.35 M/uL (3.86-4.86)
[2020-11-10 18:29] LABS: Protime INR 1.05
[2020-11-10 18:55] LABS: ALT/SGPT 29 U/L (12-78); Albumin 3.4 g/dL (3.4-5.0); Bicarbonate 29 mmol/L (21-32); Bilirubin Direct 0.1 mg/dL (0-0.2); Glucose Level 97 mg/dL (74-106); Magnesium 2.5 mg/dL (1.8-2.4); Potassium 3.1 mmol/L (3.5-5.1); Sodium Level 138 mmol/L (136-145)
[2020-11-10 18:58] LABS: Urine RBC NONE SEEN /HPF (NONE SEEN)
[2020-11-10 18:59] LABS: Urine Bacteria 20-50 /HPF (<20); Urine Mucus HEAVY /HPF (NONE SEEN)
[2020-11-10 19:11] LABS: AST/SGOT 21 U/L (15-37); Alkaline Phosphatase 57 U/L (45-117); BUN Blood Urea Nitrogen 20 mg/dL (7-18); Bilirubin Total 0.4 mg/dL (0.2-1.0); Ferritin 1044.2 ng/mL (8-388); NT PRO-BNP 49 pg/mL (<125); Protein, Total 8.3 g/dL (6.4-8.2); Troponin (Emerg Dept Use Only) < 0.02 ng/mL (0.0-0.045)
--- NOTE | 2020-11-10 19:45 | RAD REPORT ---
EXAM DESCRIPTION: CT - Chest For Pe Angio - 11/10/2020 7:35 pm CLINICAL HISTORY: Chest pain. SOB COMPARISON: Chest Pa And Lat (2 Views) dated 11/10/2020 TECHNIQUE: CT angiogram of the pulmonary arteries was performed with MIP. All CT scans are performed using dose optimization technique as appropriate and may include automated exposure control or mA/KV adjustment according to patient size. FINDINGS: No evidence of pulmonary thromboembolism. No acute aortic finding demonstrated. Extensive confluent bilateral airspace opacity is present, greatest in the lower lobes. No significant pericardial or pleural fluid. No concerning bony finding. IMPRESSION: No evidence of pulmonary thromboembolism. Extensive confluent bilateral airspace opacity is present, greatest in the lower lobes. This most lik zach represents COVID infection.
--- NOTE | 2020-11-10 19:52 | EDPHYS ---
Physician Documentation [facility] Name: Ely Barkley Age: 50 yrs Sex: Female : 1970 Arrival Date: 11/10/2020 Time: 16:08 Bed 2 Private MD: ED Physician Fawad Alcala HPI: 11/10 17:50 This 50 yrs old Female presents to ER via Ambulatory with complaints of Covid cp + SOB, Dizziness. 17:50 The patient has shortness of breath with light activity. cp 17:50 Onset: The symptoms/episode began/occurred yesterday, and became worse today. Duration: cp The symptoms are continuous, and are steadily getting worse. 17:50 Associated signs and symptoms: Pertinent positives: non-productive cough, dizziness, cp Pertinent negatives: chest pain, diaphoresis, fever, vomiting. Patient reports she tested positive for COVID-19 on 11-05-2020. Patient has not been vaccinated against the COVID-19 virus. Patient presents to ED with who has similar complaints. 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 - Social history:: Smoking status: Patient denies any tobacco usage or history of. ROS: 18:00 Constitutional: Positive for body aches, Negative for chills, fever, poor PO intake. cp 18:00 Eyes: Negative for injury, pain, redness, and discharge. cp 18:00 ENT: Negative for drainage from ear(s), ear pain, sore throat, difficulty swallowing, difficulty handling secretions. 18:00 Cardiovascular: Negative for chest pain, edema, palpitations. 18:00 Respiratory: Positive for cough, "sounds productive", shortness of breath, at rest. Negative for wheezing. 18:00 Abdomen/GI: Negative for abdominal pain, nausea, vomiting, and diarrhea. 18:00 Back: Negative for pain at rest, pain with movement, radiated pain. 18:00 Skin: Negative for cellulitis, rash. 18:00 Neuro: Positive for dizziness, Negative for altered mental status, headache, weakness. 18:00 All other systems are negative. Exam: 18:05 Constitutional: The patient appears in no acute distress, alert, awake, cp non-diaphoretic, non-toxic, well developed, well nourished, uncomfortable. 18:05 Head/Face: Normocephalic, atraumatic. cp 18:05 Eyes: Periorbital structures: appear normal, Conjunctiva: normal, no exudate, no injection, Sclera: no appreciated abnormality, Lids and lashes: appear normal, bilaterally. 18:05 ENT: External ear(s): are unremarkable, Nose: is normal, Mouth: Lips: moist, Oral mucosa: moist, Posterior pharynx: Airway: no evidence of obstruction, patent. 18:05 Neck: ROM/movement: is normal, is supple, without pain, no range of motions limitations, no meningismus. 18:05 Chest/axilla: Inspection: normal, Palpation: is normal, no crepitus, no tenderness. 18:05 Cardiovascular: Rate: normal, Rhythm: regular, Edema: is not appreciated, JVD: is not appreciated. 18:05 Respiratory: the patient does not display signs of respiratory distress, Respirations: labored breathing, that is mild, shallow respirations, that is mild, Breath sounds: decreased breath sounds, that are mild, diffuse, stridor, is not appreciated, wheezing: is not appreciated. 18:05 Abdomen/GI: Exam negative for discomfort, distension, guarding, Inspection: abdomen appears normal. 18:05 Back: pain, is absent, ROM is normal. 18:05 Neuro: Orientation: to person, place \\T\\ time. Mentation: is normal, Cerebellar function: is grossly normal, Motor: moves all fours, strength is normal, Sensation: is normal. 18:57 ECG was reviewed by the Attending Physician. cp Vital Signs: 16:54 BP 94 / 71; Pulse 84; Resp 21; Temp 98.3(O); Pulse Ox 93% on R/A; Weight 77.11 kg (R); kg Height 5 ft. 0 in. (152.40 cm) (R); Pain 6/10; 17:45 BP 99 / 78; Pulse 88; Resp 19; Temp 98.4(O); Pulse Ox 91% on R/A; ld1 17:45 BP 101 / 77; Pulse 86; Resp 19; Pulse Ox 95% on 4 lpm NC; ld1 19:33 BP 106 / 75; Pulse 84; Resp 19; Temp 98.5; Pulse Ox 93% on R/A; ld1 19:56 Pulse 82; Pulse Ox 86% on R/A; ld1 11/11 17:33 BP 104 / 76; Pulse 74; Resp 19; Pulse Ox 95% on 4 lpm NC; dh3 11/10 16:54 Body Mass Index 33.20 (77.11 kg, 152.40 cm) kg MDM: 11/10 17:47 Patient medically screened. cp 19:50 Data reviewed: vital signs, nurses notes, lab test result(s), EKG, radiologic studies, cp CT scan, plain films, and as a result, I will admit patient. 19:50 Test interpretation: by ED physician or midlevel provider: ECG, plain radiologic cp studies. Response to treatment: the patient's symptoms have mildly improved after treatment. Physician consultation: Duane MACARIO was called at 19:50, was contacted at 19:50, regarding admission, to the telemetry unit. patient's condition, and will see patient in ED, shortly. 11/10 17:46 Order name: Basic Metabolic Panel cp 11/10 17:46 Order name: CBC with Diff cp 11/10 17:46 Order name: LFT's cp 11/10 17:46 Order name: Magnesium; Complete Time: 19:15 cp 11/10 17:46 Order name: NT PRO-BNP; Complete Time: 19:15 cp 11/10 17:46 Order name: PT-INR; Complete Time: 19:05 cp 11/10 17:46 Order name: Troponin (emerg Dept Use Only); Complete Time: 19:15 cp 11/10 17:46 Order name: CRP; Complete Time: 19:15 cp 11/10 19:16 Interpretation: Abnormal: C-REACTIVE PROT 56.90. cp 11/10 17:46 Order name: Ferritin; Complete Time: 19:15 cp 11/10 17:46 Order name: Urine Microscopic Only; Complete Time: 19:05 cp 11/10 17:46 Order name: D-Dimer; Complete Time: 19:05 cp 11/10 17:47 Order name: Basic Metabolic Panel; Complete Time: 19:15 EDMS 11/10 17:47 Order name: CBC with Automated Diff; Complete Time: 10:24 EDMS 11/10 17:47 Order name: Liver (Hepatic) Function; Complete Time: 19:15 EDMS 11/10 18:11 Order name: Urine Dipstick-Ancillary; Complete Time: 19:05 EDMS 11/10 19:00 Order name: Urine Culture; Complete Time: 10:24 EDMS 11/10 20:32 Order name: C-Reactive Protein EDMS 11/10 20:32 Order name: C-Reactive Protein; Complete Time: 10:24 EDMS 11/10 20:32 Order name: C-Reactive Protein; Complete Time: 10:24 EDMS 11/10 20:32 Order name: C-Reactive Protein; Complete Time: 10:24 EDMS 11/10 20:32 Order name: CBC with Automated Diff EDMS 11/10 20:32 Order name: CBC with Automated Diff; Complete Time: 10:24 EDMS 11/10 20:32 Order name: CBC with Automated Diff; Complete Time: 10:24 EDMS 11/10 20:32 Order name: CBC with Automated Diff EDMS 11/10 20:32 Order name: Comprehensive Metabolic Panel EDMS 11/10 20:32 Order name: Comprehensive Metabolic Panel; Complete Time: 10:24 EDMS 11/10 20:32 Order name: Comprehensive Metabolic Panel; Complete Time: 10:24 EDMS 11/10 20:32 Order name: Comprehensive Metabolic Panel; Complete Time: 10:24 EDMS 11/10 20:32 Order name: D-Dimer EDMS 11/10 20:32 Order name: D-Dimer; Complete Time: 10:24 EDMS 11/10 17:01 Order name: XRAY Chest Pa And Lat (2 Views); Complete Time: 17:49 kg 11/10 17:46 Order name: EKG; Complete Time: 17:47 cp 11/10 17:46 Order name: Cardiac monitoring; Complete Time: 18:51 cp 11/10 19:11 Order name: CT Chest For PE Angio; Complete Time: 19:49 cp 11/10 19:49 Interpretation: Report reviewed. cp 11/10 20:32 Order name: Regular EDMS 11/10 20:32 Order name: Respiratory Therapy Consult EDMS 11/10 20:32 Order name: D-Dimer; Complete Time: 10:24 EDNH 11/10 20:32 Order name: D-Dimer; Complete Time: 10:24 ED[facility] 11/10 20:32 Order name: Ferritin EDNH 11/10 20:32 Order name: Ferritin; Complete Time: 10:24 ED[facility] 11/10 20:32 Order name: Ferritin; Complete Time: 10:24 ED[facility] 11/10 20:32 Order name: Ferritin; Complete Time: 10:24 ED[facility] 11/10 20:32 Order name: Lipid Profile ED[facility] 11/10 20:32 Order name: Lipid Profile; Complete Time: 10:24 ED[facility] 11/10 20:32 Order name: Magnesium EDNH 11/10 20:32 Order name: Magnesium; Complete Time: 10:24 ED[facility] 11/10 20:32 Order name: Magnesium; Complete Time: 10:24 ED[facility] 11/10 20:32 Order name: Magnesium; Complete Time: 10:24 ED[facility] 11/10 20:32 Order name: T4 Free ED[facility] 11/10 20:32 Order name: T4 Free; Complete Time: 10:24 [facility] 11/10 20:32 Order name: Thyroid Stimulating Hormone ED[facility] 11/10 20:32 Order name: Thyroid Stimulating Hormone; Complete Time: 10:24 [facility] 11/10 20:38 Order name: CBC Smear Scan; Complete Time: 10:24 [facility] 11/12 12:14 Order name: CBC Smear Scan; Complete Time: 10:24 [facility] 11/13 11:40 Order name: COVID-19 : Document "Date of Symptom Onset" if Symptomatic. eb 11/13 11:49 Order name: Manual Differential ED[facility] 11/13 12:45 Order name: CORONAVIRUS ED[facility] 11/13 13:48 Order name: SARS-COV-2 RT PCR ED[facility] 11/10 17:46 Order name: EKG - Nurse/Tech; Complete Time: 18:51 cp 11/10 17:46 Order name: IV Saline Lock; Complete Time: 18:00 cp 11/10 17:46 Order name: Labs collected and sent; Complete Time: 18:00 cp 11/10 17:46 Order name: O2 Per Protocol; Complete Time: 18:00 cp 11/10 17:46 Order name: O2 Sat Monitoring; Complete Time: 18:00 cp 11/10 17:46 Order name: Urine Dipstick-Ancillary (obtain specimen); Complete Time: 18:51 cp EC:57 Rate is 81 beats/min. Rhythm is regular. QRS interval is normal. QT interval is normal. cp T waves are Inverted in lead aVR. Interpreted by me. Reviewed by me. Administered Medications: 18:00 Drug: NS 0.9% 1000 ml Route: IV; Rate: 1 bolus; Site: left antecubital; ld1 19:28 Follow up: Response: No adverse reaction; IV Status: Completed infusion; IV Intake: ld1 1000ml 18:00 Drug: Zofran (Ondansetron) 4 mg Route: IVP; Site: left antecubital; ld1 19:27 Follow up: Response: Marked relief of symptoms ld1 19:27 Drug: SOLU-Medrol (methylPrednisoLONE) 125 mg Route: IVP; Site: left antecubital; ld1 19:27 Follow up: Response: No adverse reaction ld1 19:56 Drug: Potassium Effervescent Tablet 50 mEq Route: PO; ld1 Disposition: 11/14 07:03 Co-signature as Attending Physician, Fawad Alcala MD I agree with the assessment and rn plan of care. Attestation: The patient's history, exam findings, diagnostics, and a summary of any interventions or procedures was reviewed in detail with Michael TIMMONS. Disposition Summary: 11/10/20 19:51 Hospitalization Ordered Hospitalization Status: Inpatient Admission cp Provider: Дмитрий Rubio cp Condition: Fair cp Problem: new cp Symptoms: have improved cp Bed/Room Type: Standard Location: [facility] [place] ER HOLD(11/10/20 23:30) Room Assignment: ERHOLD-(11/10/20 23:30) Diagnosis - SARS-associated coronavirus as the cause of diseases classified elsewhere cp - Other viral pneumonia cp - Dyspnea, unspecified cp Forms: - Medication Reconciliation Form cp - SBAR form cp Signatures: Dispatcher [employer] Fawad Morgan MD MD rn Page, Corey, PA PA cp Luisa Duarte RN RN Heather Haines RN RN ld1 Amara Ozuna RN RN kg Corrections: (The following items were deleted from the chart) 11/10 23:30 19:51 Telemetry/MedSurg (Inpatient) cp cg 23:30 19:51 cp cg 11/11 02:40 11/10 17:50 Patient reports she tested positive for COVID-19 on 11-06-2020. Patient has cp not been vaccinated against the COVID-19 virus. Patient presents to ED with who has similar complaints. cp
--- NOTE | 2020-11-10 19:52 | ER ---
Nurse's Notes [facility] Name: Ely Barkley Age: 50 yrs Sex: Female : 1970 Arrival Date: 11/10/2020 Time: 16:08 Bed 2 Private MD: Diagnosis: SARS-associated coronavirus as the cause of diseases classified elsewhere;Other viral pneumonia;Dyspnea, unspecified Presentation: 11/10 16:54 Chief complaint: Patient states: increased SOB and dizziness x 1 day. Pt was diagnosed kg COVID + 11/05. Coronavirus screen: Client denies travel out of the [place] in the last 14 days. At this time, unable to obtain information related to travel outside the [place] Client presents with at least one sign or symptom that may indicate coronavirus-19. Standard/surgical mask placed on the client. Provider contacted for isolation considerations. Client reports previous positive COVID test result. Date of collection: November 05, 2020. Ebola Screen: Patient negative for fever greater than or equal to 101.5 degrees Fahrenheit, and additional compatible Ebola Virus Disease symptoms Patient denies exposure to infectious person. Patient denies travel to an Ebola-affected area in the 21 days before illness onset. Initial Sepsis Screen: Does the patient meet any 2 criteria? No. Patient's initial sepsis screen is negative. Does the patient have a suspected source of infection? No. Patient's initial sepsis screen is negative. Risk Assessment: Do you want to hurt yourself or someone else? Patient reports no desire to harm self or others. Onset of symptoms was November 09, 2020. 16:54 Method Of Arrival: Ambulatory kg 16:54 Acuity: MARK 3 kg Triage Assessment: 16:58 General: Appears in no apparent distress. Behavior is calm, cooperative, appropriate kg for age, quiet. Pain: Complains of pain in Head Pain radiates to Generalized Pain currently is 6 out of 10 on a pain scale. Respiratory: Reports shortness of breath at rest on exertion cough that is productive. GI: Reports diarrhea, nausea, vomiting. 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 - Social history:: Smoking status: Patient denies any tobacco usage or history of. Screenin:00 Abuse screen: Denies threats or abuse. Denies injuries from another. Nutritional kg screening: No deficits noted. Tuberculosis screening: No symptoms or risk factors identified. Fall Risk None identified. Assessment: 18:24 General: Appears in no apparent distress. uncomfortable, Behavior is calm, cooperative, ld1 appropriate for age. Pain: Denies pain. Neuro: Level of Consciousness is awake, alert, obeys commands, Oriented to person, place, time, situation. Cardiovascular: Capillary refill < 3 seconds Patient's skin is warm and dry. Respiratory: Reports shortness of breath cough that is Airway is patent Respiratory effort is even, unlabored, Respiratory pattern is regular, symmetrical. GI: Abdomen is round non-distended. GI: Reports nausea, vomiting. : No signs and/or symptoms were reported regarding the genitourinary system. EENT: No signs and/or symptoms were reported regarding the EENT system. Derm: Reports Body aches X 4 days. Musculoskeletal: No signs and/or symptoms reported regarding the musculoskeletal system. 19:33 Reassessment: Patient appears in no apparent distress at this time. No changes from ld1 previously documented assessment. Vital Signs: 16:54 BP 94 / 71; Pulse 84; Resp 21; Temp 98.3(O); Pulse Ox 93% on R/A; Weight 77.11 kg (R); kg Height 5 ft. 0 in. (152.40 cm) (R); Pain 6/10; 17:45 BP 99 / 78; Pulse 88; Resp 19; Temp 98.4(O); Pulse Ox 91% on R/A; ld1 17:45 BP 101 / 77; Pulse 86; Resp 19; Pulse Ox 95% on 4 lpm NC; ld1 19:33 BP 106 / 75; Pulse 84; Resp 19; Temp 98.5; Pulse Ox 93% on R/A; ld1 19:56 Pulse 82; Pulse Ox 86% on R/A; ld1 11/11 17:33 BP 104 / 76; Pulse 74; Resp 19; Pulse Ox 95% on 4 lpm [place]; 3 11/10 16:54 Body Mass Index 33.20 (77.11 kg, 152.40 cm) kg ED Course: 11/10 16:08 Patient arrived in ED. ds1 16:58 Triage completed. kg 17:00 Patient has correct armband on for positive identification. kg 17:00 No provider procedures requiring assistance completed. kg 17:01 Arm band placed on. kg 17:27 XRAY Chest Pa And Lat (2 Views) In Process Unspecified. EDMS 17:35 Hetaher Haines, RN is Primary Nurse. ld1 17:43 Michael Calix PA is PHCP. cp 17:43 Fawad Alcala MD is Attending Physician. cp 19:35 CT Chest For PE Angio In Process Unspecified. EDMS 19:50 Дмитрий Rubio MD is Hospitalizing Provider. cp Administered Medications: 18:00 Drug: NS 0.9% 1000 ml Route: IV; Rate: 1 bolus; Site: left antecubital; ld1 19:28 Follow up: Response: No adverse reaction; IV Status: Completed infusion; IV Intake: ld1 1000ml 18:00 Drug: Zofran (Ondansetron) 4 mg Route: IVP; Site: left antecubital; ld1 19:27 Follow up: Response: Marked relief of symptoms ld1 19:27 Drug: SOLU-Medrol (methylPrednisoLONE) 125 mg Route: IVP; Site: left antecubital; ld1 19:27 Follow up: Response: No adverse reaction ld1 19:56 Drug: Potassium Effervescent Tablet 50 mEq Route: PO; ld1 Intake: 19:28 IV: 1000ml; Total: 1000ml. ld1 Outcome: 19:51 Decision to Hospitalize by Provider. cp 11/13 16:30 Patient left the ED. [id number] Signatures: Dispatcher [employer] EDUT Rosario Yany ds1 Michael Calix PA PA cp Nava Aldana RN RN [id number] Tatianna Villarreal 3 Heather Haines, RN RN ld1 Amara Ozuna RN RN kg
[2020-11-10] MEDS ORDERED: POTASSIUM 25 MEQ EFFERV TAB ONE (19:59)
--- NOTE | 2020-11-10 20:16 | P.HP ---
Certification for Inpatient Patient admitted to: Inpatient With expected LOS: >2 Midnights Patient will require the following post-hospital care: None Practitioner: I am a practitioner with admitting privileges, knowledge of patient current condition, hospital course, and medical plan of care. Services: Services provided to patient in accordance with Admission requirements found in Title 42 Section 412.3 of the Code of Federal Regulations <Duane Castillo - Last Filed: 11/10/20 20:13> Patient History Date of Service: 11/10/20 History of Present Illness: Otherwise healthy 50-year-old female presents emergency department for shortness of breath. Patient reports increasing shortness of breath over the course last few days reports testing positive for Covid on 11/05/2020, patient has been on steroids, ivermectin at home per primary care doctor. Patient was evaluated the emergency department found to be hypoxic on room air to 87%. Chest x-ray significant for COVID-19 pneumonia. ED provider wishes to admit for further evaluation and management. - Past Medical/Surgical History -: None -: None Psychosocial/ Personal History: Unemployed lives with - Family History Family History: Reviewed- Non-Contributory - Social History Smoking Status: Never smoker Alcohol use: No CD- Drugs: No Caffeine use: No Place of Residence: Home <AnnaDuane - Last Filed: 11/10/20 20:13> Date of Service: 11/11/20 <Дмитрий Rubio - Last Filed: 11/11/20 16:05> Review of Systems 10-point ROS is otherwise unremarkable General: Weakness, Malaise Respiratory: Cough, Dry, Shortness of Breath, SOB with Excertion <Duane Castillo - Last Filed: 11/10/20 20:13> Physical Examination - Physical Exam General: Alert, In no apparent distress, Oriented x3 HEENT: Atraumatic, PERRLA, Mucous membr. moist/pink, EOMI, Sclerae nonicteric Neck: Supple, 2+ carotid pulse no bruit, No LAD, Without JVD or thyroid abnormality Respiratory: Normal air movement, Diminished Cardiovascular: Regular rate/rhythm, Normal S1 S2 Gastrointestinal: Normal bowel sounds, No tenderness Musculoskeletal: No tenderness Integumentary: No rashes Neurological: Normal gait, Normal speech, Normal strength at 5/5 x4 extr, Normal tone, Normal affect Lymphatics: No axilla or inguinal lymphadenopathy - Studies Laboratory Data (last 24 hrs) 11/10/20 17:58: PT 12.1, INR 1.05 11/10/20 17:58: WBC 4.80, Hgb 13.3, Hct 40.0, Plt Count 361 11/10/20 17:58: Sodium 138, Potassium 3.1 L, BUN 20 H, Creatinine 0.76, Glucose 97, Magnesium 2.5 H, Total Bilirubin 0.4, AST 21, ALT 29, Alkaline Phosphatase 57 <Duane Castillo - Last Filed: 11/10/20 20:13> - Studies Laboratory Data (last 24 hrs) 11/10/20 17:58: PT 12.1, INR 1.05 11/10/20 17:58: WBC 4.80, Hgb 13.3, Hct 40.0, Plt Count 361 11/10/20 17:58: Sodium 138, Potassium 3.1 L, BUN 20 H, Creatinine 0.76, Glucose 97, Magnesium 2.5 H, Total Bilirubin 0.4, AST 21, ALT 29, Alkaline Phosphatase 57 <Дмитрий Rubio - Last Filed: 11/11/20 16:05> Assessment and Plan - Plan Assessment: Acute hypoxic respiratory failure secondary to COVID-19 pneumonia Plan: Acute hypoxic respiratory failure secondary to COVID-19 pneumonia: Continue with IV steroids, oral supplements, patient status post Decadron/ivermectin at home per primary care doctor. CRP moderately elevated, currently on nasal cannula 2 L. Pulmonology consulted for additional assistance, daily right saturations, saturations for home O2. Appreciate further input from pulmonology. Possible discharge in next 24 to 48 hours. DVT PPX: Lovenox Code status: Ful Discharge Plan: Home Plan to discharge in: 48 Hours - Advance Directives Does patient have a Living Will: No Does patient have a Durable POA for Healthcare: No - Code Status/Comfort Care Code Status Assessed: Yes (Full code) Critical Care: No Time Spent Managing Pts Care (In Minutes): 55 <Duane Castillo - Last Filed: 11/10/20 20:13> Physician Review: Patient Assessed, Agree with Above Assessment and Plan <Дмитрий Rubio - Last Filed: 11/11/20 16:05>
[2020-11-10] MEDS ORDERED: BENZONATATE 100 MG CAP PO PRN (20:30)
[2020-11-10 20:37] LABS: Blood Morphology Comment NOT SEEN (NOT SEEN); Platelet Estimate ADEQ; White Blood Cell Scan OK (OK)
[2020-11-10] MEDS: ACETAMINOPHEN 500 MG TAB PO PRN (21:45)
[2020-11-10] MEDS: ONDANSETRON 4 MG/2 ML VIAL IV PRN (21:45)
[2020-11-11] MEDS ORDERED: ASCORBIC ACID 500 MG TABLET ONE ×4 (00:29→20:48)
[2020-11-11] MEDS: METHYLPREDNISOLONE 40 MG INJ IV SCH ×2 (00:30→09:00)
[2020-11-11] MEDS ORDERED: MELATONIN 5 MG TABLET PO ONE ×2 (00:30→20:48)
[2020-11-11] MEDS: MELATONIN 5 MG TABLET PO PRN ×2 (00:30→21:09)
[2020-11-11] MEDS: ASCORBIC ACID 500 MG TABLET PO SCH ×5 (00:30→21:00)
[2020-11-11] MEDS: ACETAMINOPHEN 500 MG TAB PO PRN ×2 (06:22→21:09)
[2020-11-11] MEDS: ONDANSETRON 4 MG/2 ML VIAL IV PRN (06:24)
[2020-11-11] MEDS ORDERED: ACETAMINOPHEN 500 MG TAB ONE ×2 (06:34→20:48)
[2020-11-11] MEDS ORDERED: ONDANSETRON 4 MG/2 ML VIAL ONE (06:34)
[2020-11-11 06:35] LABS: Absolute Lymphocytes (CBC) 0.5 K/uL (0.7-4.9); Basophils % 0.2 % (0-1.3); Hematocrit 35.8 % (36.0-45.0); Lymphocytes % 9.7 % (15.3-44.8); MPV 7.6 fL (7.6-11.3)
[2020-11-11 06:52] LABS: ALT/SGPT 24 U/L (12-78); AST/SGOT 14 U/L (15-37); Albumin 2.8 g/dL (3.4-5.0); Alkaline Phosphatase 51 U/L (45-117); BUN Blood Urea Nitrogen 15 mg/dL (7-18); Bicarbonate 26 mmol/L (21-32); Bilirubin Total 0.4 mg/dL (0.2-1.0); Ferritin 886.5 ng/mL (8-388); Glucose Level 142 mg/dL (74-106); HDL Cholesterol 42 mg/dL (40-60); LDL Cholesterol, Calculated 70 (<130); Magnesium 2.3 mg/dL (1.8-2.4); Potassium 4.2 mmol/L (3.5-5.1); Protein, Total 7.1 g/dL (6.4-8.2); Sodium Level 137 mmol/L (136-145)
[2020-11-11] MEDS ORDERED: ASPIRIN EC 81 MG TAB PO ONE (08:24)
[2020-11-11] MEDS ORDERED: THIAMINE HCL 100 MG TABLET ONE (08:24)
[2020-11-11] MEDS ORDERED: HYDROCORTISONE SUC 100 MG INJ ONE (08:24)
[2020-11-11] MEDS ORDERED: VITAMIN D 1000 UNIT TAB ONE (08:25)
[2020-11-11] MEDS ORDERED: ENOXAPARIN 40 MG/0.4 ML SQ ONE (08:25)
[2020-11-11] MEDS ORDERED: ZINC SULFATE 220 MG CAP ONE (08:25)
[2020-11-11] MEDS: ASPIRIN EC 81 MG TAB PO SCH (09:00)
[2020-11-11] MEDS: ZINC SULFATE 220 MG CAP PO SCH (09:00)
[2020-11-11] MEDS: THIAMINE HCL 100 MG TABLET PO SCH (09:00)
[2020-11-11] MEDS ORDERED: ENOXAPARIN 40 MG/0.4 ML SQ SCH (09:00)
[2020-11-11] MEDS: VITAMIN D 1000 UNIT TAB PO SCH (09:00)
--- NOTE | 2020-11-11 09:34 | P.PN ---
Subjective Date of Service: 11/11/20 Subjective: No new changes, Improving Physical Examination - Vital Signs Temperature: 98.2 F Blood Pressure: 101/74 Pulse: 61 Respirations: 24 Pulse Ox (%): 93 - Physical Exam General: Alert, Oriented x3 HEENT: Atraumatic, Normocephalic Neck: Supple Respiratory: Diminished Cardiovascular: Regular rate/rhythm, Normal S1 S2 Gastrointestinal: Soft and benign Musculoskeletal: No swelling Integumentary: No breakdown Neurological: Normal speech, Normal strength at 5/5 x4 extr, Cranial nerves 3-12 intact - Studies Laboratory Data (last 24 hrs) 11/10/20 17:58: PT 12.1, INR 1.05 11/10/20 17:58: WBC 4.80, Hgb 13.3, Hct 40.0, Plt Count 361 11/10/20 17:58: Sodium 138, Potassium 3.1 L, BUN 20 H, Creatinine 0.76, Glucose 97, Magnesium 2.5 H, Total Bilirubin 0.4, AST 21, ALT 29, Alkaline Phosphatase 57 Assessment And Plan - Plan COVID 19 disease: Has been started on supplements and steroids. pulmonary physicians following. we will continue to monitor inflammatory markers. Resp failure with hypoxia due to covid 19 disease: presently on 4 liter of oxygen. we will wean off as tolerated.
[2020-11-11 09:56] VITALS: BMI 33.2
--- NOTE | 2020-11-11 10:03 | P.CNS ---
Date of Consult: 11/11/20 Reason for Consult: COVID penumonia Chief Complaint: SOB History of Present Illness: age 50 AW COVID penumonia. was on steroids and ivermectin Allergies No Known Allergies Allergy (Unverified 11/10/20 20:30) - Past Medical/Surgical History Diabetic: No -: None -: None Psychosocial/ Personal History: Unemployed lives with - Social History Alcohol use: No CD- Drugs: No Caffeine use: No Place of Residence: Home Review of Systems General: Weakness Respiratory: Shortness of Breath Physical Examination Temp Pulse Resp BP Pulse Ox 98.2 F 61 24 H 101/74 93 11/11/20 09:34 11/11/20 09:34 11/11/20 09:34 11/11/20 09:34 11/11/20 09:34 General: Alert, Oriented x3, Cooperative Laboratory Data (last 24 hrs) 11/10/20 17:58: PT 12.1, INR 1.05 11/10/20 17:58: WBC 4.80, Hgb 13.3, Hct 40.0, Plt Count 361 11/10/20 17:58: Sodium 138, Potassium 3.1 L, BUN 20 H, Creatinine 0.76, Glucose 97, Magnesium 2.5 H, Total Bilirubin 0.4, AST 21, ALT 29, Alkaline Phosphatase 57 - Problems (1) Pneumonia due to COVID-19 virus Current Visit: Yes Status: Acute Plan: Age 50 AW COVID penumonia/ labs and CT rev/ Increase steroids and change to Eliquis
--- NOTE | 2020-11-11 11:10 | EKG ---
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
[2020-11-11] MEDS: METHYLPREDNISOLONE 125 MG INJ IV SCH ×2 (13:51→21:00)
[2020-11-11] MEDS ORDERED: METHYLPREDNISOLONE 125 MG INJ ONE (20:47)
[2020-11-11] MEDS ORDERED: APIXABAN 5 MG TABLET ONE (20:48)
[2020-11-11] MEDS: APIXABAN 5 MG TABLET PO SCH (21:00)
[2020-11-12 06:36] LABS: Absolute Lymphocytes (CBC) 0.7 K/uL (0.7-4.9); Basophils % 0.2 % (0-1.3); Hematocrit 35.3 % (36.0-45.0); Lymphocytes % 8.2 % (15.3-44.8); MPV 7.3 fL (7.6-11.3)
[2020-11-12 07:04] LABS: Albumin 2.9 g/dL (3.4-5.0); BUN Blood Urea Nitrogen 17 mg/dL (7-18); Bicarbonate 25 mmol/L (21-32); Glucose Level 139 mg/dL (74-106); Magnesium 2.3 mg/dL (1.8-2.4); Potassium 4.3 mmol/L (3.5-5.1); Sodium Level 138 mmol/L (136-145)
[2020-11-12 07:12] LABS: ALT/SGPT 22 U/L (12-78); AST/SGOT 9 U/L (15-37); Alkaline Phosphatase 50 U/L (45-117); Bilirubin Total 0.4 mg/dL (0.2-1.0); Ferritin 714.7 ng/mL (8-388); Protein, Total 7.1 g/dL (6.4-8.2)
--- NOTE | 2020-11-12 07:52 | P.PN ---
Subjective Date of Service: 11/12/20 Chief Complaint: SOB Subjective: No new changes (on 4L NC, desaturates quickly with minimal movement. cough, and upper abd / lower chest pain with cough/deep inspiration.) Review of Systems 10-point ROS is otherwise unremarkable Physical Examination - Vital Signs Temperature: 96.9 F Blood Pressure: 103/71 Pulse: 65 Respirations: 20 Pulse Ox (%): 91 Assessment & Plan Physician Review Additional Text: Physical exam GEN: Alert, oriented, NAD HEENT: Normal conjunctiva, sclera anicteric CV: Regular rate and rhythm, no edema Pulm: nonlabored respirations on 4 L nasal cannula with mild tachypnea, dry cough Abdomen: Soft, nontender, nondistended MSK: No joint tenderness, Skin: No rashes Problem list Acute hypoxemic respiratory failure secondary to COVID-19 pneumonia Continue with IV steroids, vitamin supplementation, oxygen supplementation. Received Decadron/ivermectin at home Inflammatory markers are improving, remains on 4 L nasal cannula, desaturation with minimal movement Pulmonology consulted Continue Eliquis Denies any nausea/vomiting/diarrhea. Decreased appetite Dispo: Anticipate discharge home with home oxygen in the next 1-2 days. Time Spent Managing Pts Care (In Minutes): 40
[2020-11-12] MEDS ORDERED: METHYLPREDNISOLONE 125 MG INJ ONE ×2 (08:44→14:38)
[2020-11-12] MEDS ORDERED: ASCORBIC ACID 500 MG TABLET ONE ×3 (08:44→21:06)
[2020-11-12] MEDS ORDERED: THIAMINE HCL 100 MG TABLET ONE (08:44)
[2020-11-12] MEDS ORDERED: APIXABAN 5 MG TABLET ONE ×2 (08:45→21:12)
[2020-11-12] MEDS ORDERED: ASPIRIN EC 81 MG TAB PO ONE (08:45)
[2020-11-12] MEDS ORDERED: ZINC SULFATE 220 MG CAP ONE (08:45)
[2020-11-12] MEDS ORDERED: VITAMIN D 1000 UNIT TAB ONE (08:45)
[2020-11-12] MEDS: VITAMIN D 1000 UNIT TAB PO SCH (09:00)
[2020-11-12] MEDS: ZINC SULFATE 220 MG CAP PO SCH (09:00)
[2020-11-12] MEDS: ASPIRIN EC 81 MG TAB PO SCH (09:00)
[2020-11-12] MEDS: METHYLPREDNISOLONE 125 MG INJ IV SCH ×3 (09:00→21:00)
[2020-11-12] MEDS: THIAMINE HCL 100 MG TABLET PO SCH (09:00)
[2020-11-12] MEDS: ASCORBIC ACID 500 MG TABLET PO SCH ×4 (09:00→21:00)
[2020-11-12] MEDS: APIXABAN 5 MG TABLET PO SCH ×2 (09:00→21:00)
[2020-11-12 12:13] LABS: Blood Morphology Comment NOT SEEN (NOT SEEN); Platelet Estimate ADEQ; White Blood Cell Scan OK (OK)
[2020-11-12] MEDS: ACETAMINOPHEN 500 MG TAB PO PRN (17:27)
[2020-11-12] MEDS ORDERED: ACETAMINOPHEN 325 MG TABLET ONE (17:35)
[2020-11-12] MEDS ORDERED: METHYLPREDNISOLONE 40 MG INJ ONE (21:12)
[2020-11-13 00:49] VITALS: O2SAT 89
[2020-11-13 05:50] LABS: Absolute Lymphocytes (CBC) 0.8 K/uL (0.7-4.9); Basophils % 0.1 % (0-1.3); Hematocrit 36.3 % (36.0-45.0); Lymphocytes % 8.6 % (15.3-44.8); MPV 7.3 fL (7.6-11.3)
[2020-11-13 06:17] LABS: ALT/SGPT 20 U/L (12-78); AST/SGOT 6 U/L (15-37); Alkaline Phosphatase 50 U/L (45-117); BUN Blood Urea Nitrogen 19 mg/dL (7-18); Bicarbonate 25 mmol/L (21-32); Bilirubin Total 0.3 mg/dL (0.2-1.0); C-Reactive Protein 7.66 mg/L (<3.00); Ferritin 593.4 ng/mL (8-388); Glucose Level 137 mg/dL (74-106); Magnesium 2.2 mg/dL (1.8-2.4); Potassium 4.3 mmol/L (3.5-5.1); Protein, Total 7.2 g/dL (6.4-8.2); Sodium Level 138 mmol/L (136-145)
[2020-11-13] MEDS ORDERED: ASCORBIC ACID 500 MG TABLET ONE (08:13)
[2020-11-13] MEDS ORDERED: METHYLPREDNISOLONE 125 MG INJ ONE (08:13)
[2020-11-13] MEDS ORDERED: APIXABAN 5 MG TABLET ONE (08:14)
[2020-11-13] MEDS ORDERED: ZINC SULFATE 220 MG CAP ONE (08:14)
[2020-11-13] MEDS ORDERED: ASPIRIN EC 81 MG TAB PO ONE (08:14)
[2020-11-13] MEDS ORDERED: THIAMINE HCL 100 MG TABLET ONE (08:14)
[2020-11-13] MEDS ORDERED: VITAMIN D 1000 UNIT TAB ONE (08:14)
[2020-11-13] MEDS: METHYLPREDNISOLONE 125 MG INJ IV SCH (09:00)
[2020-11-13] MEDS: ZINC SULFATE 220 MG CAP PO SCH (09:00)
[2020-11-13] MEDS: ASCORBIC ACID 500 MG TABLET PO SCH (09:00)
[2020-11-13] MEDS: APIXABAN 5 MG TABLET PO SCH (09:00)
[2020-11-13] MEDS: VITAMIN D 1000 UNIT TAB PO SCH (09:00)
[2020-11-13] MEDS: THIAMINE HCL 100 MG TABLET PO SCH (09:00)
[2020-11-13] MEDS: ASPIRIN EC 81 MG TAB PO SCH (09:00)
[2020-11-13 09:49] VITALS: BP 120/68; TEMP 97.6
[2020-11-13] MEDS: ACETAMINOPHEN 500 MG TAB PO PRN (09:50)
[2020-11-13] MEDS ORDERED: ACETAMINOPHEN 500 MG TAB ONE (10:05)
[2020-11-13 11:48] LABS: Blood Morphology Comment NOT SEEN (NOT SEEN); Platelet Estimate ADEQ
--- NOTE | 2020-11-13 15:50 | P.DS ---
Admission Date: 11/10/20 Discharge Date: 11/13/20 Disposition: ROUTINE DISCHARGE Discharge Condition: GOOD Reason for Admission: SOB, COVID-19 Consultations: Pulmonology - Dr. Ugarte Procedures: CXR (11/10): FINDINGS: Moderate bibasilar lung opacities are present most compatible with infection/ pneumonia. The heart is normal in size. No displaced fractures. CTA Chest (11/10): FINDINGS: No evidence of pulmonary thromboembolism. No acute aortic finding demonstrated. Extensive confluent bilateral airspace opacity is present, greatest in the lower lobes. No significant pericardial or pleural fluid. No concerning bony finding. IMPRESSION: No evidence of pulmonary thromboembolism. Extensive confluent bilateral airspace opacity is present, greatest in the lower lobes. This most likely represents COVID infection. Problem list Acute hypoxemic respiratory failure secondary to COVID-19 pneumonia Brief History of Present Illness: 50-year-old female presents emergency department for shortness of breath. Patient reports increasing shortness of breath over the course last few days reports testing positive for Covid on 11/05/2020, patient has been on steroids, ivermectin at home per primary care doctor. Patient was evaluated the emergency department found to be hypoxic on room air to 87%. Chest x-ray significant for COVID-19 pneumonia. ED provider wishes to admit for further evaluation and management. Hospital Course: Patient improved with treatment for COVID-19 pneumonia with steroids, vitamin supplementation, and oxygen supplementation. On day of discharge she was stable for >24hrs on 4L NC, ambulating with minimal hypoxia, tolerating diet. Discharged home to continue treatment. Recommended to take 162mg aspirin daily for the next month. F/u with Dr. Ugarte in 1 week. Vital Signs/Physical Exam: Physical exam GEN: Alert, oriented, NAD HEENT: Normal conjunctiva, sclera anicteric CV: Regular rate and rhythm, no edema Pulm: nonlabored respirations on 4 L nasal cannula, dry cough Abdomen: Soft, nontender, nondistended MSK: No joint tenderness, Temp Pulse Resp BP Pulse Ox 97.6 F 67 19 120/68 94 11/13/20 08:00 11/13/20 08:00 11/13/20 08:00 11/13/20 08:00 11/13/20 08:00 Laboratory Data at Discharge: WBC 9.20 K/uL (4.3-10.9) 11/13/20 05:16 Hgb 12.7 g/dL (12.0-15.0) 11/13/20 05:16 Hct 36.3 % (36.0-45.0) 11/13/20 05:16 Plt Count 506 K/uL (152-406) H 11/13/20 05:16 PT 12.1 SECONDS (9.5-12.5) 11/10/20 17:58 INR 1.05 11/10/20 17:58 Sodium 138 mmol/L (136-145) 11/13/20 05:16 Potassium 4.3 mmol/L (3.5-5.1) 11/13/20 05:16 BUN 19 mg/dL (7-18) H 11/13/20 05:16 Creatinine 0.60 mg/dL (0.55-1.3) 11/13/20 05:16 Glucose 137 mg/dL (74-106) H 11/13/20 05:16 Magnesium 2.2 mg/dL (1.8-2.4) 11/13/20 05:16 Total Bilirubin 0.3 mg/dL (0.2-1.0) 11/13/20 05:16 AST 6 U/L (15-37) L 11/13/20 05:16 ALT 20 U/L (12-78) 11/13/20 05:16 Alkaline Phosphatase 50 U/L (45-117) 11/13/20 05:16 Triglycerides 207 mg/dL (<150) H 11/11/20 05:57 Cholesterol 153 mg/dL (<200) 11/11/20 05:57 HDL Cholesterol 42 mg/dL (40-60) 11/11/20 05:57 Cholesterol/HDL Ratio 3.64 11/11/20 05:57 Home Medications: Ascorbic Acid [Vitamin C*] 500 mg PO QID 30 Days #120 tablet 11/13/20 Aspirin [Aspirin EC 81 MG] 2 tab PO DAILY 30 Days #60 tablet.dr 11/13/20 Benzonatate [Tessalon Perle*] 100 mg PO TID PRN 7 Days #21 cap 11/13/20 Cholecalciferol (Vitamin D3) [Vitamin D 1000 Iu Tab*] 4,000 unit PO DAILY 30 Days #120 tab 11/13/20 Ondansetron [Zofran] 4 mg PO Q8H PRN 5 Days #15 tab 11/13/20 Zinc Sulfate [Zinc Sulfate*] 220 mg PO DAILY 30 Days #30 cap 11/13/20 predniSONE [Prednisone] 20 mg PO SEECOM 14 Days #21 tablet 11/13/20 New Medications: Aspirin [Aspirin EC 81 MG] 2 tab PO DAILY 30 Days #60 tablet. predniSONE [Prednisone] 20 mg PO SEECOM 14 Days #21 tablet Benzonatate [Tessalon Perle*] 100 mg PO TID PRN 7 Days #21 cap PRN Reason: Cough Ascorbic Acid [Vitamin C*] 500 mg PO QID 30 Days #120 tablet Cholecalciferol (Vitamin D3) [Vitamin D 1000 Iu Tab*] 4,000 unit PO DAILY 30 Days #120 tab Zinc Sulfate [Zinc Sulfate*] 220 mg PO DAILY 30 Days #30 cap Ondansetron [Zofran] 4 mg PO Q8H PRN 5 Days #15 tab PRN Reason: Nausea / Vomiting Physician Discharge Instructions: You were found to have COVID-19 pneumonia. You had improvement with steroids, vitamin supplementation, and oxygen supplementation. You are discharged home to continue with this treatment. Recommend taking 162mg aspirin daily for 30 days. Follow up with Dr. Ugarte (Talent Acquisition Specialist) in ~1 week. Call his office to schedule the appointment. Diet: Regular Activity: Ad kathy Followup: Brady Ugarte MD [ACTIVE - CAN ADMIT] - Yifan Morris DO, DO [Primary Care Provider] - Time spent managing pt's care (in minutes): 45
== END 2020-11-13 16:29 | disposition home or self-care (01) | DRG 177 ==
LOC: ER 16:04 → ERHOLD 19:49
PROVIDERS: ADMIT Internal Medicine Nephrology; ATTEND Internal Medicine Nephrology
DX: U07.1 COVID-19 (principal); J12.82 Pneumonia due to coronavirus disease 2019; J96.01 Acute respiratory failure with hypoxia
CPT/HCPCS: 36415; 71046; 71275; 80048; 80053; 80061; 80076; 81003; 81015; 82728; 83735; 83880; 84439; 84443; 84484; 85025; 85379; 85610; 86140; 87086; 87088; 93005; 94760; 96361; 96374; 96375; 99283; J1650; J1720; J2405; J2920; J2930; J7030; Q9967; U0003

== ENCOUNTER 2020-12-02 15:20 | Day surgery (SDC) | payer OTHER ==
[2020-12-02] MEDS ORDERED: GENTAMICIN SULF 80 MG/2ML INJ ONE (15:34)
[2020-12-02] MEDS ORDERED: GLUCAGON 1 MG/VIAL ONE (15:34)
[2020-12-02] MEDS ORDERED: Ringers Lactate 1,000 ML IV ONE (15:51)
[2020-12-02] MEDS ORDERED: LIDOCAINE 1% MPF 5 ML VIAL ONE (17:00)
[2020-12-02] MEDS ORDERED: propofoL 200 MG/20 ML VIAL IV ONE (17:00)
[2020-12-02] MEDS ORDERED: ONDANSETRON 4 MG/2 ML VIAL ONE ×2 (17:00→19:17)
[2020-12-02] MEDS ORDERED: CEFAZOLIN/SWI 1gm 1 GM/10 ML SYR ONE (17:39)
--- NOTE | 2020-12-02 18:52 | ENDO RPT ---
[address], [address] ERCP PROCEDURE REPORT EXAM DATE: 12/02/2020 PATIENT NAME: Ely Barkley MR #: [id number] BIRTHDATE: 1970 ATTENDING: Sheldon Mckeon Dr STATUS: outpatient COMPUTER SCIENCE TEACHER: Glenna Walden RN and Tomy Grant CST INDICATIONS: The patient is a 50 yr old Female here for an ERCP due to MARIIA abdominal pain, abnormal imaging (U/S abdomen, CT abdomen, MRCP), and stone in PROCEDURE PERFORMED: ERCP with sphincterotomy, ERCP with balloon passage, ERCP with removal of stones, and ERCP with stent placement MEDICATIONS: Per Anesthesia. CONSENT: The patient understands the risks and benefits of the procedure and understands that these risks include, but are not limited to: sedation, allergic reaction, infection, perforation and/or bleeding. Alternative means of evaluation and treatment include, among others: physical exam, x-rays, and/or surgical intervention. The patient elects to proceed with this endoscopic procedure. DESCRIPTION OF PROCEDURE: During intra-op preparation period all mechanical medical equipment was checked for proper function. Hand hygiene and appropriate measures for infection prevention was taken. Procedure, possible complications, and alternatives including but not limited to the possibility of bleeding, perforation, tear, infection, sepsis, need for surgery, need for blood transfusion, and anesthesia related complications were explained to the patient. In addition, 5-30% incidence of acute pancreatitis as a result of ERCP were explained. After the risks, benefits and alternatives of the procedure were thoroughly explained, Informed was verified, confirmed and timeout was successfully executed by the treatment team. With the patient in left semi-prone position, medications were administered intravenously.The ED-[id number] ([id number]) was passed from the mouth into the esophagus and further advanced from the esophagus into the stomach. From stomach scope was directed to the second portion of the duodenum. Major papilla was aligned with the duodenoscope. The scope position was confirmed fluoroscopically. Rest of the findings/therapeutics are given below. The scope was then completely withdrawn from the patient and the procedure completed. The pulse, BP, and O2 saturation were monitored and documented by the physician and the nursing staff throughout the entire procedure. The patient was cared for as planned according to standard protocol. The patient was then discharged to recovery in stable condition and with appropriate post procedure care. were found in the common bile duct. Sphincterotomy was performed with a regular 20 mm papillotome. A stone retrieval 9 mm balloon catheter was passed. A 7-5 straight stent was placed. Despite extensive cholangiogram, gallbladder could not be seen. The pancreatic duct was filled to the tail and appeared to be normal. Care was taken not to overfill the ductal system. ADVERSE EVENT: None balloon catheter removal stones, and 7-5 plastic biliary stent placement 2. Despite extensive cholangiogram, gallbladder could not be seen -> suggestive of cholecystitis 3. The pancreatic duct was filled to the tail and appeared to be normal. Care was taken not to overfill the ductal system. RECOMMENDATIONS: 1. antibiotics 2. cholecystectomy as per surgery REPEAT EXAM: Return in 2 week(s) for ERCP. Sheldon Mckeon Dr eSigned: Sheldon Mckeon Dr 12/02/2020 6:52 PM cc: Elvis Young CPT CODES: ICD9 CODES: PATIENT NAME: Ely Barkley MR#: [id number]
[2020-12-02 19:44] VITALS: TEMP 97.6
[2020-12-02 19:45] VITALS: O2SAT 100
[2020-12-02 19:46] VITALS: BP 109/92
--- NOTE | 2020-12-02 20:10 | RAD REPORT ---
EXAM DESCRIPTION: RAD - Fluoroscopy ERCP - 12/02/2020 7:42 pm FINDINGS: There were 4 portable C-arm images submitted from a fluoroscopic assisted ERCP. Several fi lling defects are seen within a prominent common bile duct. These could be stones or air bubbles. Cor relation is needed with findings during real-time evaluation. Fluoro time was 469.3 seconds.
== END 2020-12-02 19:40 | disposition home or self-care (01) ==
LOC: OR 15:20
PROVIDERS: ATTEND Internal Medicine Gastroenterology
PROC: 0F9C80Z Drainage of Ampulla of Vater with Drainage Device, Via Natural or Artificial Opening Endoscopic (ICD-10-PCS; 2020-12-02)
PROC: 0FC98ZZ Extirpation of Matter from Common Bile Duct, Via Natural or Artificial Opening Endoscopic (ICD-10-PCS; 2020-12-02)
PROC: 0F798DZ Dilation of Common Bile Duct with Intraluminal Device, Via Natural or Artificial Opening Endoscopic (ICD-10-PCS; principal; 2020-12-02 10:30)
DX: K80.50 Calculus of bile duct without cholangitis or cholecystitis without obstruction (principal); K80.10 Calculus of gallbladder with chronic cholecystitis without obstruction; R10.13 Epigastric pain
CPT/HCPCS: 43262; 43264; 43274; J2704; J1610; J1580; J0690; J7120; J2405 ×2; C1769; C2625

== ENCOUNTER 2020-12-09 06:54 | Day surgery (SDC) | payer OTHER ==
[2020-12-08 09:52] LABS: Basophils % 1.2 % (0-1.3); Hematocrit 38.3 % (36.0-45.0); Lymphocytes % 26.6 % (15.3-44.8); MPV 8.3 fL (7.6-11.3); RBC Red Blood Cell Count 4.05 M/uL (3.86-4.86)
[2020-12-08 10:02] LABS: ALT/SGPT 110 U/L (12-78); AST/SGOT 18 U/L (15-37); Albumin 3.7 g/dL (3.4-5.0); Alkaline Phosphatase 82 U/L (45-117); Amylase 54 U/L (25-115); BUN Blood Urea Nitrogen 12 mg/dL (7-18); Bicarbonate 27 mmol/L (21-32); Bilirubin Direct 0.1 mg/dL (0-0.2); Bilirubin Total 0.5 mg/dL (0.2-1.0); Glucose Level 102 mg/dL (74-106); Potassium 4.3 mmol/L (3.5-5.1); Protein, Total 7.7 g/dL (6.4-8.2); Sodium Level 142 mmol/L (136-145)
--- NOTE | 2020-12-08 10:31 | RAD REPORT ---
EXAM DESCRIPTION: RAD - Chest Pa And Lat (2 Views) - 12/08/2020 10:23 am CLINICAL HISTORY: PreOp, pending cholecystectomy COMPARISON: Two view chest November 10, CT chest November 10 TECHNIQUE: Frontal and lateral views of the chest were obtained. FINDINGS: The lungs are normal volume. Left lung field is clear. Left lung field infiltrates seen on November 10 have resolved. There is trace remnant airspace opacification in the lateral lower right dat ng field. Nearly all of the right lung field pneumonia changes have resolved since November 10. Trachea is midline. Heart size is normal and central vasculature is within normal limits. No pleur al effusion or pneumothorax seen. No acute bony finding noted. No aortic abnormality. IMPRESSION: Complete or near complete resolution of the bilateral pneumonia findings since November 10 . No acute chest findings are suspected.
[2020-12-09] MEDS ORDERED: FENTANYL CITR 250 MCG/5 ML ONE (07:37)
[2020-12-09] MEDS ORDERED: LIDOCAINE 1% MPF 5 ML VIAL ONE (07:37)
[2020-12-09] MEDS ORDERED: propofoL 200 MG/20 ML VIAL IV ONE (07:37)
[2020-12-09] MEDS ORDERED: ONDANSETRON 4 MG/2 ML VIAL ONE ×2 (07:37→09:57)
[2020-12-09] MEDS ORDERED: dexAMETHasone 10 MG/ML VIAL ONE (07:37)
[2020-12-09] MEDS ORDERED: MIDAZOLAM HCL 2 MG/2 ML INJ ONE (07:37)
[2020-12-09] MEDS ORDERED: ROCURONIUM 50 MG/5 ML VIAL IV ONE (07:39)
[2020-12-09] MEDS ORDERED: CELECOXIB 100 MG CAPSULE ONE (07:58)
[2020-12-09] MEDS ORDERED: ACETAMINOPHEN 500 MG TAB ONE (07:59)
[2020-12-09] MEDS ORDERED: Ringers Lactate 1,000 ML IV ONE (08:03)
[2020-12-09] MEDS ORDERED: CEFOXITIN/SWI 1gm 1 GM/10 ML SYR ONE (08:03)
[2020-12-09] MEDS ORDERED: KETOROLAC 30 MG/ML INJ ONE (09:27)
[2020-12-09] MEDS ORDERED: Mastisol Adhesive Liq ONE (09:33)
[2020-12-09] MEDS: HYDROMORPHONE HCL 1 MG/ML INJ ONE ×4 (09:35→10:07)
[2020-12-09 09:38] VITALS: O2SAT 100
[2020-12-09] MEDS: Ringers Lactate 1,000 ML IV ONE ×2 (09:41→10:12)
--- NOTE | 2020-12-09 09:43 | OP ---
Date of Procedure: 12/09/2020 Surgeon: Elvis Young MD Timekeeper: RICKI Melchor. Preoperative Diagnoses: Chronic cholecystitis, cholelithiasis, choledocholithiasis, status post endo scopic retrograde cholangiopancreatography. Postoperative Diagnoses: Chronic cholecystitis, cholelithiasis, choledocholithiasis, status post end oscopic retrograde cholangiopancreatography. Procedure: Laparoscopic cholecystectomy. Estimated Blood Loss: Minimal. Specimen: Gallbladder. Findings: As above. Anesthesia: General. Complications: None. Disposition: The patient tolerated the procedure in stable condition and taken to Recovery in good g eneral condition. Operative Note: The patient was brought to the OR and placed in supine position. General anesthesia was begun. The patient was prepped and draped in the usual sterile fashion. Marcaine 0.5% was infi ltrated locally. A 15-blade was used to make a 1 cm supraumbilical midline incision. Subcutaneous t issue was divided. Fascia was identified and divided. #1 Vicryl stay suture was placed. Peritoneal cavity was entered with sharp and blunt dissection. A 12 mm trocar was placed into the peritoneal c avity under direct vision. Pneumoperitoneum was established and then three 5 mm trocars were placed under direct vision, 1 in the epigastrium just to the right of midline and 2 in the right subcostal r egion. Laparoscopy revealed chronic inflammation of the gallbladder with some omental adhesions whic h were taken down easily. Fundus was retracted superiorly. Infundibulum was identified and retracte d inferolaterally. Cystic duct and cystic artery were clearly identified with blunt dissection and t hen clips were placed and both structures were divided. Cautery was used to remove the gallbladder f rom the liver bed. Bleeding on the liver bed was controlled with cautery. Gallbladder was retrieved through the umbilicus via an EndoCatch bag. Right upper quadrant was irrigated. Effluent was clear . No evidence of bleeding or bile leakage was appreciated. Subsequently, all trocars were removed u nder direct vision. Stay sutures were tied to each other to reapproximate fascial defect. Subcutane ous wounds were irrigated. Bleeding was controlled with cautery. A 3-0 chromic was used to approxima te the subcutaneous tissue and close the skin. Sterile dressing was applied. The patient was awaken ed and taken to Recovery in good general condition. Discharge Note: The patient will go to Day Surgery and home when stable. Disposition: Home. Condition: Stable. Discharge Instructions: Resume home medications and diet. Activity as tolerated. No heavy lifting. Remove outer dressing in 2 days. Shower. Keep Steri-Strips on at all times. Follow up in my offi ce in 1 week. Call for appointment. Tylenol No.3 one tablet p.o. q.4 p.r.n. pain. /MODL Voice ID: [id number] Report ID: [id number]
[2020-12-09 10:57] VITALS: BP 131/81; TEMP 97.7
[2020-12-09] MEDS ORDERED: PROMETHAZINE INJ 25 MG/ML AMP ONE (11:04)
[2020-12-09] MEDS ORDERED: HYDROCODONE/APAP 7.5/325 MG TAB ONE (11:13)
== END 2020-12-09 11:20 | disposition home or self-care (01) ==
LOC: OR 06:54
PROVIDERS: ATTEND Surgery
PROC: 0FT44ZZ Resection of Gallbladder, Percutaneous Endoscopic Approach (ICD-10-PCS; principal; 2020-12-09 08:30)
DX: K80.10 Calculus of gallbladder with chronic cholecystitis without obstruction (principal); K80.40 Calculus of bile duct with cholecystitis, unspecified, without obstruction
CPT/HCPCS: 93005; 85025; 80048; 36415; 82150; 80076; 88304; 71046; 47562; J2704; J2550; J2250; J3010; J1100; J1170 ×2; J7120 ×2; J2405 ×2

== ENCOUNTER 2021-01-19 08:53 | Day surgery (SDC) | payer OTHER ==
[2021-01-19] MEDS ORDERED: GLUCAGON 1 MG/VIAL ONE (09:30)
[2021-01-19] MEDS ORDERED: GENTAMICIN SULF 80 MG/2ML INJ ONE (09:30)
[2021-01-19] MEDS ORDERED: Ringers Lactate 1,000 ML IV ONE (09:35)
[2021-01-19] MEDS ORDERED: propofoL 200 MG/20 ML VIAL IV ONE ×5 (09:55→10:42)
[2021-01-19] MEDS ORDERED: GLYCOPYRROLATE 0.2 MG/ML SYR ONE (09:56)
[2021-01-19] MEDS ORDERED: LIDOCAINE 1% MPF 2 ML AMPULE ONE (09:57)
--- NOTE | 2021-01-19 10:52 | ENDO RPT ---
[address], [address] ERCP PROCEDURE REPORT EXAM DATE: 01/19/2021 PATIENT NAME: Ely Barkley MR #: [id number] BIRTHDATE: 1970 ATTENDING: Sheldon Mckeon Dr STATUS: outpatient SECURITY ARCHITECT: Glenna Walden RN and Gabrielle Wei CST INDICATIONS: The patient is a 50 yr old Female here for an ERCP due to stent removal PROCEDURE PERFORMED: ERCP with stent removal, ERCP with removal of stones, and ERCP with balloon passage MEDICATIONS: Per Anesthesia. CONSENT: The patient understands the risks and benefits of the procedure and understands that these risks include, but are not limited to: sedation, allergic reaction, infection, perforation and/or bleeding. Alternative means of evaluation and treatment include, among others: physical exam, x-rays, and/or surgical intervention. The patient elects to proceed with this endoscopic procedure. DESCRIPTION OF PROCEDURE: During intra-op preparation period all mechanical medical equipment was checked for proper function. Hand hygiene and appropriate measures for infection prevention was taken. Procedure, possible complications, and alternatives including but not limited to the possibility of bleeding, perforation, tear, infection, sepsis, need for surgery, need for blood transfusion, and anesthesia related complications were explained to the patient. In addition, 5-30% incidence of acute pancreatitis as a result of ERCP were explained. After the risks, benefits and alternatives of the procedure were thoroughly explained, Informed was verified, confirmed and timeout was successfully executed by the treatment team. With the patient in left semi-prone position, medications were administered intravenously.The ED-[id number] ([id number]) was passed from the mouth into the esophagus and further advanced from the esophagus into the stomach. From stomach scope was directed to the second portion of the duodenum. Major papilla was aligned with the duodenoscope. The scope position was confirmed fluoroscopically. Rest of the findings/therapeutics are given below. The scope was then completely withdrawn from the patient and the procedure completed. The pulse, BP, and O2 saturation were monitored and documented by the physician and the nursing staff throughout the entire procedure. The patient was cared for as planned according to standard protocol. The patient was then discharged to recovery in stable condition and with appropriate post procedure care. A stent was present major papilla. The previously placed stent was removed. Multiple stones were found in the common bile duct. A stone retrieval balloon was passed. Mild 9 mm mild stricture / narrowing in the mid common bile duct (seen just below the duodenoscope). ADVERSE EVENT: IMPRESSIONS: 1. Stent in major papilla, s/p removal with snare 2. Multiple (4) small 2-3 mm black-yellow stones in the distal common bile duct, s/p removal with 9 mm balloon catheter sweeps of bile duct 3. Mild stricture / narrowing 9 mm of the mid common bile duct (seen just below the duodenoscope) RECOMMENDATIONS: follow-up: GI clinic 3 week(s) REPEAT EXAM: Sheldon Mckeon Dr eSigned: Sheldon Mckeon Dr 01/19/2021 10:52 AM cc: Elvis Young CPT CODES: ICD9 CODES: PATIENT NAME: Ely Barkley MR#: [id number]
--- NOTE | 2021-01-19 11:22 | RAD REPORT ---
EXAM DESCRIPTION: RAD - Fluoroscopy ERCP - 01/19/2021 10:43 am FINDINGS: There were 3 portable C-arm views obtained during a fluoroscopic assisted ERCP for stent r emoval. No filling defects seen within the common bile duct on the submitted images. Fluoro time was 2.34 minutes.
[2021-01-19 15:54] VITALS: O2SAT 100
[2021-01-19 15:55] VITALS: BP 108/77; TEMP 97.6
== END 2021-01-19 11:45 | disposition home or self-care (01) ==
LOC: PRE 08:53
PROVIDERS: ATTEND Internal Medicine Gastroenterology
PROC: 0FC98ZZ Extirpation of Matter from Common Bile Duct, Via Natural or Artificial Opening Endoscopic (ICD-10-PCS; 2021-01-19)
PROC: 0FPB8DZ Removal of Intraluminal Device from Hepatobiliary Duct, Via Natural or Artificial Opening Endoscopic (ICD-10-PCS; principal; 2021-01-19 10:00)
DX: K85.10 Biliary acute pancreatitis without necrosis or infection (principal); K81.9 Cholecystitis, unspecified; Z20.822 Contact with and (suspected) exposure to COVID-19
CPT/HCPCS: 43275; 43264; U0002; J2704 ×2; J1580; J7120; J1610